=== PATIENT | female | born 1945 | race Caucasian/White ===

== ENCOUNTER → 2016-11-04 | Outpatient (CLI) | payer MEDICARE ==
[~2016-11-04] MED LIST: ALBU0.08 NEB; ASPI1TAB69 PO; BENETAB PO; CLON1TAB PO; COQ1100C PO; CYCL1TAB29 PO; DICL50TA PO; GABA600T PO; MULTCAP13; OMEG1CAP33 PO; ROPI1TAB PO; ROSU40 PO
[2016-11-04 17:33] LABS: FREE T4 1.31 NG/DL (0.76-1.46); GLUCOSE,FASTING 73 MG/DL (74-99); TOTAL PROTEIN SPE 7.8 GM/DL (6.0-7.6)
[2016-11-04 17:58] LABS: HEMOGLOBIN A1a 0.9 %; HEMOGLOBIN A1b 1.9 %; HEMOGLOBIN Ao 84.7 %
[2016-11-05 20:32] LABS: ALBUMIN SPE 4.34 GM/DL (3.50-5.00); ALPHA 1 GLOBULIN 0.21 GM/DL (0.11-0.29); ALPHA 2 GLOBULIN 1.08 GM/DL (0.22-1.00); BETA GLOBULINS (SPE) 0.85 GM/DL (0.53-1.03)
== END ==
LOC: PLAB 11:44
PROVIDERS: ATTEND Specialist
DX: E11.65 Type 2 diabetes mellitus with hyperglycemia (principal); E78.4 Other hyperlipidemia; E78.5 Hyperlipidemia, unspecified; R70.0 Elevated erythrocyte sedimentation rate; E53.8 Deficiency of other specified B group vitamins; M31.6 Other giant cell arteritis
CPT/HCPCS: 36415; 82607; 82947; 83036; 84165; 84439; 84443; 85652

== ENCOUNTER → 2016-12-09 | Outpatient (CLI) | payer MEDICARE ==
[2016-12-09 15:10] LABS: POTASSIUM 4.8 MEQ/L (3.5-5.1)
[2016-12-09 15:12] LABS: BICARBONATE 31.5 MEQ/L (21.0-32.0)
== END ==
LOC: PLAB 13:55
PROVIDERS: ATTEND Podiatrist Foot & Ankle Surgery
DX: Z13.228 Encounter for screening for other metabolic disorders (principal)
CPT/HCPCS: 36415; 80048

== ENCOUNTER → 2017-02-16 | Outpatient (CLI) | payer MEDICARE ==
[2017-02-16 14:10] LABS: ALKALINE PHOSPHATASE 114 U/L (45-117); ALT (GPT) 30 U/L (10-53); ANION GAP 6 MEQ/L (5-15); AST (GOT) 20 U/L (15-37); BICARBONATE 29.2 MEQ/L (21.0-32.0); BLOOD UREA NITROGEN 16 MG/DL (7-18); CHLORIDE 105 MEQ/L (98-107); FREE T4 1.21 NG/DL (0.76-1.46); GLOMERULAR FILTRATION RATE 70 ML/MIN (>89); GLUCOSE,FASTING 92 MG/DL (74-99); LDL CHOLESTEROL 50 MG/DL (0-99); POTASSIUM 3.9 MEQ/L (3.5-5.1); SODIUM (NA) 140 MEQ/L (136-145); TOTAL BILIRUBIN ADULT 0.2 MG/DL (0.2-1.0)
[2017-02-16 16:50] LABS: HEMOGLOBIN A1a 0.9 %; HEMOGLOBIN A1b 1.9 %; HEMOGLOBIN Ao 84.7 %; HEMOGLOBIN P3 3.9 %
== END ==
LOC: PLAB 10:24
PROVIDERS: ATTEND Family Medicine
DX: R94.6 Abnormal results of thyroid function studies (principal); R94.5 Abnormal results of liver function studies; E78.5 Hyperlipidemia, unspecified; R73.01 Impaired fasting glucose
CPT/HCPCS: 36415; 80053; 80061; 80074; 83036; 84439; 84443

== ENCOUNTER → 2017-06-15 | Outpatient (CLI) | payer MEDICARE ==
[~2017-06-15] MED LIST changes: -ASPI1TAB69 PO; +ASPI81TA81; +BACL10TA PO; -BENETAB PO; +CO Q10CA; -COQ1100C PO; -DICL50TA PO; +DICL50TA3; +HYDR-3133 PO; -MULTCAP13; +MULTTAB12; -OMEG1CAP33 PO; +OMEP20TA PO; +PERC10TA27 PO
--- NOTE | 2017-06-15 16:51 | EKG ---
Date Performed: 06/15/2017 Time Performed: 11:41:50 PTAGE: 72 years EKG: Sinus rhythm POSSIBLE LEFT ATRIAL ENLARGEMENT LOW QRS VOLTAGE IN EXTREMITY LEADS BORDERLINE ECG PREVIOUS TRACING : 05/23/2016 13.54 Compared to prior tracing no significant change DOCTOR: Brody Shen Interpretating Date/Time 06/15/2017 16:48:19
== END ==
LOC: PHPRE 11:20
PROVIDERS: ATTEND Ophthalmology
DX: Z01.810 Encounter for preprocedural cardiovascular examination (principal); I10 Essential (primary) hypertension; H26.9 Unspecified cataract
CPT/HCPCS: 36415; 93005

== ENCOUNTER → 2017-06-29 | Day surgery (SDC) | payer MEDICARE ==
--- NOTE | 2017-06-16 13:15 | MH ---
cc: DAPHNE SILVA DATE OF ADMISSION 06/29/2017 ADMISSION DIAGNOSIS Cataract right eye. HISTORY OF PRESENT ILLNESS This 72-year-old white female is coming through [facility] for the purpose of a lens extraction of the right eye with intraocular lens implant under local anesthesia. She has noticed decreasing visual acuity interfering with her daily activities and elected to have the above procedure. Her best corrected visual acuity in room light is 20/40 each eye. PAST MEDICAL HISTORY The patient has a history of: 1. Hypertension 2. Neuropathy 3. Cholesterol problems 4. Chronic obstructive pulmonary disease 5. Gastroesophageal reflux disease 6. She has had renal failure. 7. GI bleed with sepsis 8. Increased red blood cells 9. History of spinal injury. PAST SURGICAL HISTORY Includes: 1. Thoracic spine surgery three times 2. Lumbar spine surgery 3. Appendectomy 4. Total abdominal hysterectomy 5. Endoscopy MEDICATIONS Daily medications include: 1. Clonazepam 2. Ropinirole 3. Diclofenac 4. Oxycodone p.r.n. 5. Co-Q10 6. Baby aspirin 7. Multivitamins 8. Gabapentin 9. Hydroxyzine 10. Flexeril 11. Benefiber 12. Lovastatin 13. Ipratropium A Albuterol nebulizer. ALLERGIES She has no known allergies. SOCIAL HISTORY She was a one-pack per day smoker for 50 years in the past and has an alcoholic beverage once a month. FAMILY HISTORY Positive for father, brother and grandmother with cataracts and a grandmother and brother with glaucoma. REVIEW OF SYSTEMS HEAD: Patient denies severe headaches, dizziness or recent head injury. EARS: Patient denies hearing loss, ear pain, discharge or ringing in the ears. NOSE: Patient denies nasal discharge, obstruction or frequent colds. MOUTH AND THROAT: Patient denies soreness of the mouth or tongue, bleeding gums, trouble swallowing, changes in voice or sore throat. NECK: She does have some limitation of her neck from severe arthritis with some neck discomfort. CARDIOPULMONARY SYSTEM: Due to the patient's COPD she has some shortness of breath, chronic cough, sputum production and wheezing. GI SYSTEM: She also has some nausea and vomiting secondary to her gastroesophageal reflux disease. She occasionally gets abdominal discomfort with constipation and hemorrhoids. SYSTEM: The patient denies urinary frequency, dysuria, change in urine color. NERVOUS SYSTEM: She has peripheral neuropathy in her extremities. Patient denies convulsions, vertigo, stroke. PHYSICAL EXAM VITAL SIGNS: Blood pressure is 132/78, pulse 76, respirations 20. HEAD: Normocephalic, atraumatic. NOSE: Without rhinorrhea. THROAT: Clear. NECK: Supple. CHEST: Clear. HEART: Regular rhythm. ABDOMEN: Without tenderness. EXTREMITIES: Without edema. NEUROLOGIC: Within normal limits. MENTAL STATUS: Within normal limits. EYE EXAMINATION The patient's best corrected visual acuity in room light is 20/40 in each eye. Visual resendez are full to confrontation testing. Extraocular muscle exam reveals full versions with orthophoria in the distance and exophoria at near. Pupils are 3.5 mm equal, and minimally reactive to light without afferent defect. Anterior segment examination reveals dermatochalasis of the eyelid skin. There are nuclear sclerotic and cortical cataract changes with the cortical changes being central and greater in the left than the right. Intraocular pressure is 18 in the right eye and 16 in the left by applanation tonometry. Dilated fundus exam revealed sharp disks with cup-to-disk ratio 0.4 bilaterally. A mild epiretinal membrane was present in the macula of the right eye. The macula of the left eye was clear. The background is within normal limits. A potential acuity meter test shows potential acuity of 20/25 +1 in the right eye and 20/20 in the left. IMPRESSION 1. Bilateral cataracts 2. Epiretinal membrane right eye. PLAN The plan is lens extraction of the right eye with intraocular lens implant under local anesthesia through [facility]. The patient has been cleared medically. She has been counseled as to the risks, benefits and alternatives and elected to proceed. I feel that cataract surgery will improve the quality of life and activities of daily living in this patient. MD DALE Joyce/CARTER /12:48 PM /2:26 PM JOSE ELIAS
[~2017-06-29] VITALS: Ht 154.9 cm; Wt 59.0 kg
[~2017-06-29] MED LIST changes: +ACETAMINOPHEN 500 MG CPLT ONE; +ACETYLCHOLINE CHL OPHT SOLN 1:100 2 ML VIAL ONE; +CHLORHEXIDINE GLUCONATE 2 % 1 PACK (2 CLOTHS) TOPICAL PRN; +CYCLOPENTOLATE HCL 1% OPHT SOLN 2 ML BTL ONE; +DICLOFENAC SOD 0.1% OPHT SOLN 2.5 ML BTL ONE; +EPINEPHrine HCL (1:1000) 1 MG/ML VIAL ONE; +GATIFLOXACIN 0.5% OPHT SOLN 2.5 ML BTL ONE; +HYALURONIDASE/LIDOCAINE/BUPIVACAINE 4.5 ML SYR RIGHT EYE ONE; +HYALURONIDASE/LIDOCAINE/BUPIVACAINE 6 ML SYR RIGHT EYE ONE; +INSULIN HUMAN REGULAR 1,000 UNITS/10 ML VIAL SQ PRN; +LACTATED RINGER'S 1000 ML IV PRN; +METOPROLOL TARTRATE 25 MG TAB PO PRN; +PHENYLEPHRINE HCL 2.5% OPTH SOLN 2 ML BTL ONE; +PILOCARPINE HCL 2% OPHT SOLN 15 ML BTL ONE; +POVIDONE IODINE 5% (ANTISEPSIS KIT) 4 APPLICATIONS EACH NARE PRN; +PROPARACAINE HCL 0.5% OPHT SOLN 15 ML BTL ONE; +PROPARACAINE HCL 0.5% OPHT SOLN 15 ML BTL RIGHT EYE ONE; +PROPOFOL 200 MG/20 ML AMP ONE; +SODIUM CHLORID 0.9% 500 ML INJ 500 ML IV ONE; +SODIUM CHLORID 0.9% 500 ML IV PRN; +TOBRAMYCIN/DEXAMETHASONE OPTH OINT 3.5 GM TUBE ONE; +TROPICAMIDE 1% OPHT SOLN 15 ML BTL ONE; +VISCOAT OPHT IRRIG SOLN 0.75 ML SYRINGE ONE
[2017-06-29 06:40] VITALS: PULSE 86
[2017-06-29] MEDS: GATIFLOXACIN 0.5% OPHT SOLN 2.5 ML BTL RIGHT EYE SCH ×4 (06:40→06:49)
[2017-06-29] MEDS: PHENYLEPHRINE HCL 2.5% OPTH SOLN 2 ML BTL RIGHT EYE SCH ×4 (06:40→06:49)
[2017-06-29] MEDS: TROPICAMIDE 1% OPHT SOLN 15 ML BTL RIGHT EYE SCH ×4 (06:40→06:49)
[2017-06-29] MEDS: CYCLOPENTOLATE HCL 1% OPHT SOLN 2 ML BTL RIGHT EYE SCH ×4 (06:40→06:49)
[2017-06-29] MEDS: DICLOFENAC SOD 0.1% OPHT SOLN 2.5 ML BTL RIGHT EYE SCH ×4 (06:40→06:49)
[2017-06-29 08:30] VITALS: TEMP 97.5
[2017-06-29 09:00] VITALS: BP 137/79; PULSE 80; RESP 14; O2SAT 97
--- NOTE | 2017-06-30 13:14 | MP ---
cc: DAPHNE ZACARIAS DATE OF SURGERY: June 29, 2017 PREOPERATIVE DIAGNOSIS: Cataract right eye. POSTOPERATIVE DIAGNOSIS: Cataract right eye. OPERATION: Extracapsular cataract extraction with posterior chamber intraocular lens implant by phacoemulsification, right eye. SURGEON: Daphne Zacarias M.D. ANESTHESIA: Local. COMPLICATIONS: None. INDICATIONS: See history and physical previously dictated. OPERATIVE PROCEDURE: The patient had adequate retrobulbar and eyelid blocks administered in the holding area and was brought to the operating room. The right eye was prepped and draped in the usual sterile ophthalmic manner. A lid speculum was inserted in the right eye. A 4-0 silk bridle suture was placed through the conjunctiva near the superior rectus muscle and it was tagged to the drape. A fornix-based conjunctival flap was prepared spanning approximately 5 mm in width. Hemostasis was obtained with wet-field cautery. A 3.5 mm groove was made 1 mm from the limbus and dissected up to the limbus in the form of a scleral pocket incision. A stab incision was then made at the 2 o'clock position. Viscoelastic was injected into the anterior chamber. The anterior chamber was entered with a 2.75 mm keratome through the scleral pocket incision. A 360 degree continuous curvilinear capsulorrhexis was then performed. Hydrodissection was utilized to divide the nucleus into inner and outer components and to separate the cortex from the capsule. Phacoemulsification was then utilized to remove the nucleus. The outer nuclear layer was removed with irrigation and aspiration and short bursts of ultrasound as necessary. The cortex was removed with the irrigation/aspiration handpiece. The posterior capsule was polished with the capsule polisher. Viscoelastic was injected into the capsular bag. The intraocular lens was inspected and found to be in good condition. The lens utilized was an Hua, model number SA60AT with a power of +22 diopters. The lens was inserted into the capsular bag. The viscoelastic in the anterior chamber was then removed with the irrigation-aspiration handpiece. Viscoelastic was also removed from beneath the intraocular lens. The anterior chamber was filled with Miochol-E through the stab incision and pressurized. The wound was checked for leaks at this pressure and normalized pressure and there were none. The 4-0 bridle suture was removed. The conjunctival flap was brought down over the wound and secured with cautery. Pilocarpine 2% eye drops were instilled topically. The lid speculum was removed. TobraDex ophthalmic ointment was applied. The eye was double patched and shielded. The patient tolerated the procedure well and left the Operating Room in satisfactory condition. DaphneMD DALE Harmon/OLAF /8:39 AM /1:05 PM
== END | disposition home or self-care (01) ==
LOC: PHSDC 06:13
PROVIDERS: ATTEND Ophthalmology
DX: H25.811 Combined forms of age-related cataract, right eye (principal); I10 Essential (primary) hypertension; G62.9 Polyneuropathy, unspecified; J44.9 Chronic obstructive pulmonary disease, unspecified; K21.9 Gastro-esophageal reflux disease without esophagitis
CPT/HCPCS: 00142; 66984; J0171; J7040; V2632

== ENCOUNTER → 2017-08-03 | Outpatient (CLI) | payer MEDICARE ==
[~2017-08-03] MED LIST changes: -ACETAMINOPHEN 500 MG CPLT ONE; -ACETYLCHOLINE CHL OPHT SOLN 1:100 2 ML VIAL ONE; -CHLORHEXIDINE GLUCONATE 2 % 1 PACK (2 CLOTHS) TOPICAL PRN; -CYCLOPENTOLATE HCL 1% OPHT SOLN 2 ML BTL ONE; -DICLOFENAC SOD 0.1% OPHT SOLN 2.5 ML BTL ONE; -EPINEPHrine HCL (1:1000) 1 MG/ML VIAL ONE; -GATIFLOXACIN 0.5% OPHT SOLN 2.5 ML BTL ONE; -HYALURONIDASE/LIDOCAINE/BUPIVACAINE 4.5 ML SYR RIGHT EYE ONE; -HYALURONIDASE/LIDOCAINE/BUPIVACAINE 6 ML SYR RIGHT EYE ONE; -INSULIN HUMAN REGULAR 1,000 UNITS/10 ML VIAL SQ PRN; -LACTATED RINGER'S 1000 ML IV PRN; -METOPROLOL TARTRATE 25 MG TAB PO PRN; -PHENYLEPHRINE HCL 2.5% OPTH SOLN 2 ML BTL ONE; -PILOCARPINE HCL 2% OPHT SOLN 15 ML BTL ONE; -POVIDONE IODINE 5% (ANTISEPSIS KIT) 4 APPLICATIONS EACH NARE PRN; -PROPARACAINE HCL 0.5% OPHT SOLN 15 ML BTL ONE; -PROPARACAINE HCL 0.5% OPHT SOLN 15 ML BTL RIGHT EYE ONE; -PROPOFOL 200 MG/20 ML AMP ONE; -SODIUM CHLORID 0.9% 500 ML INJ 500 ML IV ONE; -SODIUM CHLORID 0.9% 500 ML IV PRN; -TOBRAMYCIN/DEXAMETHASONE OPTH OINT 3.5 GM TUBE ONE; -TROPICAMIDE 1% OPHT SOLN 15 ML BTL ONE; -VISCOAT OPHT IRRIG SOLN 0.75 ML SYRINGE ONE
[2017-08-03 11:29] LABS: AUTOMATED NEUTROPHIL # 15.6 TH/MM3 (1.8-7.7); BASOPHIL # 0.1 TH/MM3 (0-0.2); BASOPHIL % 0.6 % (0.0-2.0); EOSINOPHIL # 0.2 TH/MM3 (0-0.4); EOSINOPHIL % 0.9 % (0.0-4.0); HEMO FLAGS DIFF FINAL; LYMPH % 18.3 % (9.0-44.0); LYMPHOCYTE # 3.8 TH/MM3 (1.0-4.8); MEAN CELL VOLUME 87.9 FL (80.0-100.0); MEAN CORPUSCULAR HEMOGLOBIN 28.9 PG (27.0-34.0); MEAN CORPUSCULAR HGB CONC 32.8 % (32.0-36.0); MONO % 4.5 % (0.0-8.0); NEUT % 75.7 % (16.0-70.0); PLATELET COUNT 278 TH/MM3 (150-450); RED BLOOD COUNT 5.11 MIL/MM3 (4.00-5.30); RED CELL DISTRIBUTION WIDTH 14.3 % (11.6-17.2); WHITE BLOOD COUNT 20.6 TH/MM3 (4.0-11.0)
== END ==
LOC: PHPRE 10:50
PROVIDERS: ATTEND Ophthalmology
DX: Z01.812 Encounter for preprocedural laboratory examination (principal)
CPT/HCPCS: 36415; 85025

== ENCOUNTER → 2017-08-10 | Outpatient (CLI) | payer MEDICARE ==
[2017-08-10 13:11] LABS: AUTOMATED NEUTROPHIL # 13.3 TH/MM3 (1.8-7.7); BASOPHIL # 0.1 TH/MM3 (0-0.2); BASOPHIL % 0.4 % (0.0-2.0); EOSINOPHIL # 0.1 TH/MM3 (0-0.4); EOSINOPHIL % 0.5 % (0.0-4.0); HEMATOCRIT 47.2 % (35.0-46.0); HEMO FLAGS DIFF FINAL; LYMPH % 20.1 % (9.0-44.0); LYMPHOCYTE # 3.6 TH/MM3 (1.0-4.8); MEAN CELL VOLUME 91.5 FL (80.0-100.0); MEAN CORPUSCULAR HEMOGLOBIN 29.9 PG (27.0-34.0); MEAN CORPUSCULAR HGB CONC 32.7 % (32.0-36.0); MONO % 4.6 % (0.0-8.0); NEUT % 74.4 % (16.0-70.0); PLATELET COUNT 276 TH/MM3 (150-450); RED BLOOD COUNT 5.16 MIL/MM3 (4.00-5.30); RED CELL DISTRIBUTION WIDTH 14.9 % (11.6-17.2); WHITE BLOOD COUNT 17.9 TH/MM3 (4.0-11.0)
[2017-08-10 13:41] LABS: ALKALINE PHOSPHATASE 95 U/L (45-117); ALT (GPT) 50 U/L (10-53); HDL CHOLESTEROL 57.9 MG/DL (40.0-60.0); LDL CHOLESTEROL 62 MG/DL (0-99); TOTAL BILIRUBIN ADULT 0.6 MG/DL (0.2-1.0)
[2017-08-10 14:10] LABS: HEMOGLOBIN A1a 1.1 %; HEMOGLOBIN Ao 84.1 %; HEMOGLOBIN LA1C 2.1 %
[2017-08-10 14:17] LABS: ANION GAP 8 MEQ/L (5-15); AST (GOT) 17 U/L (15-37); BICARBONATE 31.3 MEQ/L (21.0-32.0); BLOOD UREA NITROGEN 16 MG/DL (7-18); CHLORIDE 101 MEQ/L (98-107); GLOMERULAR FILTRATION RATE 63 ML/MIN (>89); GLUCOSE,FASTING 96 MG/DL (74-99); POTASSIUM 4.2 MEQ/L (3.5-5.1); SODIUM (NA) 140 MEQ/L (136-145)
== END ==
LOC: PLAB 10:42
PROVIDERS: ATTEND Family Medicine
DX: E78.5 Hyperlipidemia, unspecified (principal); R73.01 Impaired fasting glucose; R94.6 Abnormal results of thyroid function studies
CPT/HCPCS: 36415; 80053; 80061; 83036; 84443; 85025

== ENCOUNTER → 2017-08-10 | Day surgery (SDC) | payer MEDICARE ==
--- NOTE | 2017-08-03 15:13 | MH ---
cc: DAPHNE SILVA M.D. [facility], DATE OF ADMISSION: 08/10/2017 ADMISSION DIAGNOSIS Cataract, left eye. HISTORY OF PRESENT ILLNESS This 72-year-old white female is coming through [facility] for the purpose of a lens extraction of the left eye with intraocular lens implant under local anesthesia. She has a history of decreased visual acuity interfering with her daily activities and elected to have the above procedure. She had cataract surgery in her right eye in June of this year and did well postoperatively and now requested the cataract be done on her left eye. Her best-corrected visual acuity is 20/25 +2 in the right eye and 20/40 in the left eye in room light. PAST MEDICAL HISTORY 1. Hypertension. 2. Neuropathy. 3. Cholesterol problems. 4. COPD. 5. Gastroesophageal reflux disease. 6. Spinal injury. 7. GI bleed. 8. Sepsis. 9. Renal failure. 10. Increased red blood cells. PAST SURGICAL HISTORY 1. Thoracic spine surgery three times. 2. Lumbar surgery. 3. Appendectomy. 4. Total abdominal hysterectomy. 5. Endoscopy. 6. Cataract surgery as above. MEDICATIONS Daily medications include: 1. Clonazepam. 2. Ropinirole. 3. Diclofenac. 4. Oxycodone. 5. CoQ10. 6. Multivitamins. 7. Gabapentin. 8. Flexeril. 9. Benefiber. 10. Lovastatin. 11. Nebulizer. 12. Omeprazole. 13. Two ELIJAH medicines. ALLERGIES The patient has no known allergies. SOCIAL HISTORY She smoked one pack of cigarettes a day for 50 years in the past; does not smoke now. She drinks alcohol once a month. FAMILY HISTORY Positive for father, brother and grandmother with cataracts, grandmother and brother with glaucoma. REVIEW OF SYSTEMS HEAD: Patient denies severe headaches, dizziness or recent head injury. EARS: Patient denies hearing loss, ear pain, discharge or ringing in the ears. NOSE: Patient denies nasal discharge, obstruction or frequent colds. MOUTH AND THROAT: Patient denies soreness of the mouth or tongue, bleeding gums, trouble swallowing, changes in voice or sore throat. NECK: Patient denies neck pain or swelling, limitation of neck movement or neck injury. CARDIOPULMONARY SYSTEM: The patient has COPD with shortness of breath, chronic cough and wheezing. Patient denies hemoptysis, chest pain, palpitations or light-headedness. GI SYSTEM: The patient has some gastroesophageal reflux disease causing some nausea and vomiting at times and abdominal discomfort. She also has hemorrhoids. Patient denies poor appetite, ulcers, or change in bowel habits. SYSTEM: The patient denies urinary frequency, dysuria, change in urine color. NERVOUS SYSTEM: The patient has peripheral neuropathy. Patient denies convulsions, vertigo, stroke, numbness or weakness. MUSCULOSKELETAL: The patient has severe arthritis and limited range of motion. PHYSICAL EXAMINATION VITAL SIGNS: Blood pressure 110/78, pulse 80, respirations 16. HEAD: Normocephalic, atraumatic. NOSE: Without rhinorrhea. THROAT: Clear. NECK: Supple. CHEST: Clear. HEART: Regular rhythm. ABDOMEN: Without tenderness. EXTREMITIES: Without edema. NEUROLOGIC: Within normal limits. MENTAL STATUS: Within normal limits. EYE EXAM: The patient's best-corrected visual acuity is 20/25 +2 in the right eye and 20/40 in the left eye in room light. Visual resendez are full to confrontation testing. Extraocular muscle exam reveals full versions with orthophoria in the distance and exophoria at near. Pupils are 3.5 mm, equal, round, reactive to light without afferent defect. Anterior segment examination reveals a posterior chamber intraocular lens in place in the right eye and nuclear sclerotic and cortical cataract in the left eye. Intraocular pressure is 15 in the right eye and 17 in the left by applanation tonometry. Dilated fundus exam revealed sharp disks with cup-to-disk ratio of 0.4 bilaterally. An epiretinal membrane that is mild is noted in the macula of the right eye. The macula of the left eye is within normal limits. Background is within normal limits. IMPRESSION 1. Cataract, left eye. 2. Pseudophakia, right eye. 3. Mild epiretinal membrane in the macula of the right eye. PLAN Lens extraction of the left eye with intraocular lens implant under local anesthesia through [facility]. The patient has been cleared medically. She has been counseled as to the risks, benefits and alternatives and elected to proceed. I feel that cataract surgery will improve the quality of life and activities of daily living in this patient. MD DALE Joyce/ZOE /2:36 PM /2:57 PM
[~2017-08-10] VITALS: Ht 154.9 cm; Wt 60.5 kg
[~2017-08-10] MED LIST changes: +ACETYLCHOLINE CHL OPHT SOLN 1:100 2 ML VIAL ONE; +CHLORHEXIDINE GLUCONATE 2 % 1 PACK (2 CLOTHS) TOPICAL PRN; +CYCLOPENTOLATE HCL 1% OPHT SOLN 2 ML BTL ONE; +DICLOFENAC SOD 0.1% OPHT SOLN 2.5 ML BTL ONE; +EPINEPHrine HCL (1:1000) 1 MG/ML VIAL ONE; +GATIFLOXACIN 0.5% OPHT SOLN 2.5 ML BTL ONE; +HYALURONIDASE/LIDOCAINE/BUPIVACAINE 4.5 ML SYR ONE; +HYALURONIDASE/LIDOCAINE/BUPIVACAINE 6 ML SYR ONE; +INSULIN HUMAN REGULAR 1,000 UNITS/10 ML VIAL SQ PRN; +LACTATED RINGER'S 1000 ML IV PRN; +METOPROLOL TARTRATE 25 MG TAB PO PRN; +PHENYLEPHRINE HCL 2.5% OPTH SOLN 2 ML BTL ONE; +PILOCARPINE HCL 2% OPHT SOLN 15 ML BTL ONE; +POVIDONE IODINE 5% (ANTISEPSIS KIT) 4 APPLICATIONS EACH NARE PRN; +PROPARACAINE HCL 0.5% OPHT SOLN 15 ML BTL ONE; +PROPOFOL 200 MG/20 ML AMP ONE; +SODIUM CHLORID 0.9% 500 ML IV PRN; +TOBRAMYCIN/DEXAMETHASONE OPTH OINT 3.5 GM TUBE ONE; +TROPICAMIDE 1% OPHT SOLN 15 ML BTL ONE; +VISCOAT OPHT IRRIG SOLN 0.75 ML SYRINGE ONE
[2017-08-10 07:42] VITALS: PULSE 89
[2017-08-10 08:32] VITALS: PULSE 77
[2017-08-10 09:57] VITALS: TEMP 98.2
[2017-08-10 10:20] VITALS: BP 158/87; PULSE 81; RESP 16; O2SAT 98
--- NOTE | 2017-08-10 10:36 | MP ---
cc: DAPHNE ZACARIAS DATE OF SURGERY: August 10, 2017 PREOPERATIVE DIAGNOSIS: Cataract left eye. POSTOPERATIVE DIAGNOSIS: Cataract left eye. OPERATION: Extracapsular cataract extraction with posterior chamber intraocular lens implant by phacoemulsification, left eye. SURGEON: Daphne Zacarias M.D. ANESTHESIA: Local. COMPLICATIONS: None. INDICATIONS: See history and physical previously dictated. OPERATIVE PROCEDURE: The patient had adequate retrobulbar and eyelid blocks administered in the holding area and was brought to the operating room. The left eye was prepped and draped in the usual sterile ophthalmic manner. A lid speculum was inserted in the left eye. A 4-0 silk bridle suture was placed through the conjunctiva near the superior rectus muscle and it was tagged to the drape. A fornix-based conjunctival flap was prepared spanning approximately 5 mm in width. Hemostasis was obtained with wet-field cautery. A 3.5 mm groove was made 1 mm from the limbus and dissected up to the limbus in the form of a scleral pocket incision. A stab incision was then made at the 2 o'clock position. Viscoelastic was injected into the anterior chamber. The anterior chamber was entered with a 2.75 mm keratome through the scleral pocket incision. A 360 degree continuous curvilinear capsulorrhexis was then performed. Hydrodissection was utilized to divide the nucleus into inner and outer components and to separate the cortex from the capsule. Phacoemulsification was then utilized to remove the nucleus. The outer nuclear layer was removed with irrigation and aspiration and short bursts of ultrasound as necessary. The cortex was removed with the irrigation/aspiration handpiece. The posterior capsule was polished with the capsule polisher. Viscoelastic was injected into the capsular bag. The intraocular lens was inspected and found to be in good condition. The lens utilized was an Hua, model number SA60AT with a power of +22 diopters. The lens was inserted into the capsular bag. The viscoelastic in the anterior chamber was then removed with the irrigation-aspiration handpiece. Viscoelastic was also removed from beneath the intraocular lens. The anterior chamber was filled with Miochol-E through the stab incision and pressurized. The wound was checked for leaks at this pressure and normalized pressure and there were none. The 4-0 bridle suture was removed. The conjunctival flap was brought down over the wound and secured with cautery. Pilocarpine 2% eye drops were instilled topically. The lid speculum was removed. TobraDex ophthalmic ointment was applied. The eye was double patched and shielded. The patient tolerated the procedure well and left the Operating Room in satisfactory condition. DaphneMD DALE Harmon/OLAF /10:05 AM /10:31 AM
== END | disposition home or self-care (01) ==
LOC: PHSDC 07:00
PROVIDERS: ATTEND Ophthalmology
DX: H26.9 Unspecified cataract (principal); I12.9 Hypertensive chronic kidney disease with stage 1 through stage 4 chronic kidney disease, or unspecified chronic kidney disease; N18.9 Chronic kidney disease, unspecified; E78.5 Hyperlipidemia, unspecified; G62.9 Polyneuropathy, unspecified; J44.9 Chronic obstructive pulmonary disease, unspecified; K21.9 Gastro-esophageal reflux disease without esophagitis; Z96.1 Presence of intraocular lens; Z87.891 Personal history of nicotine dependence; Z79.891 Long term (current) use of opiate analgesic; Z79.51 Long term (current) use of inhaled steroids; Z79.899 Other long term (current) drug therapy
CPT/HCPCS: 00142; 36415; 66984; 80053; 80061; 83036; 84443; 85025; J0171; J7040; V2632

== ENCOUNTER 2017-12-30 10:53 | Emergency (ER) | payer MEDICARE ==
[~2017-12-30] VITALS: Ht 152.4 cm; Wt 57.5 kg
[~2017-12-30 10:53] MED LIST changes: -ACETYLCHOLINE CHL OPHT SOLN 1:100 2 ML VIAL ONE; -ASPI81TA81; +ASPI81TA81 PO; -CHLORHEXIDINE GLUCONATE 2 % 1 PACK (2 CLOTHS) TOPICAL PRN; -CYCL1TAB29 PO; -CYCLOPENTOLATE HCL 1% OPHT SOLN 2 ML BTL ONE; -DICL50TA3; +DICL50TA3 PO; -DICLOFENAC SOD 0.1% OPHT SOLN 2.5 ML BTL ONE; -EPINEPHrine HCL (1:1000) 1 MG/ML VIAL ONE; +FENT25DI T-DERMAL; -GATIFLOXACIN 0.5% OPHT SOLN 2.5 ML BTL ONE; -HYALURONIDASE/LIDOCAINE/BUPIVACAINE 4.5 ML SYR ONE; -HYALURONIDASE/LIDOCAINE/BUPIVACAINE 6 ML SYR ONE; -INSULIN HUMAN REGULAR 1,000 UNITS/10 ML VIAL SQ PRN; +IPRASOL NEB; -LACTATED RINGER'S 1000 ML IV PRN; -METOPROLOL TARTRATE 25 MG TAB PO PRN; -MULTTAB12; +MULTTAB12 PO; -OMEP20TA PO; -PHENYLEPHRINE HCL 2.5% OPTH SOLN 2 ML BTL ONE; -PILOCARPINE HCL 2% OPHT SOLN 15 ML BTL ONE; -POVIDONE IODINE 5% (ANTISEPSIS KIT) 4 APPLICATIONS EACH NARE PRN; -PROPARACAINE HCL 0.5% OPHT SOLN 15 ML BTL ONE; -PROPOFOL 200 MG/20 ML AMP ONE; +ROSU1TAB10 PO; -SODIUM CHLORID 0.9% 500 ML IV PRN; -TOBRAMYCIN/DEXAMETHASONE OPTH OINT 3.5 GM TUBE ONE; -TROPICAMIDE 1% OPHT SOLN 15 ML BTL ONE; -VISCOAT OPHT IRRIG SOLN 0.75 ML SYRINGE ONE; +ZANT150T2 PO
[2017-12-30 10:55] VITALS: BP 153/80; PULSE 99; RESP 18; TEMP 98.2
[2017-12-30 11:33] VITALS: O2SAT 87; O2SAT 97
[2017-12-30] MEDS ORDERED: SODIUM CHLOR 0.9% 1000 ML INJ 1,000 ML IV SCH (11:33)
--- NOTE | 2017-12-30 11:39 | PD ---
HPI Chief Complaint: General Weakness Time Seen by Provider: 11:07 Travel History International Travel<30 days: No Contact w/Intl Traveler<30days: No Traveled to known affect area: No History of Present Illness HPI This is a 72-year-old female who presents for evaluation of tremulousness, fatigue, difficulty concentrating. Symptoms started 5 days ago after she spent the weekend working in her yard doing yard work. She reports severe thirst as well. Symptoms have persisted which prompted evaluation today. She denies fevers, chills, headache, blurred vision, neck pain, chest pain, shortness of breath, nausea, vomiting, diarrhea, constipation, dysuria, rash. Her primary care physician is Dr. Syed. She is on numerous sedating medications including fentanyl, baclofen, gabapentin, Klonopin, Percocet, but she denies any increase in her medication this week. She has no other complaints at this time. PFSH Past Medical History Arthritis: Yes (BACK AND NECK) Cancer: Yes (SKIN) Cardiovascular Problems: No High Cholesterol: Yes COPD: Yes Diabetes: No Diminished Hearing: No Endocrine: No Gastrointestinal Disorders: Yes (GERD) GERD: Yes Genitourinary: Yes (INCONTINENT) Hepatitis: No Hiatal Hernia: No Hypertension: Yes Immune Disorder: No Musculoskeletal: Yes (BACK, SPINE,NECK LEG PAIN; HERNIATED DISC) Neurologic: Yes (PERIPHERAL NEUROPATHY; MEMORY LOSS) Psychiatric: Yes (CLAUSTROPHIA; FEAR OF HEIGHTS) Reproductive: No Respiratory: Yes (PNEUMONIA; COPD) Immunizations Current: Yes Thyroid Disease: No Menopausal: Yes Past Surgical History Abdominal Surgery: Yes (LAP APPY) AICD: No Appendectomy: Yes Body Medical Devices: THORACIC TITANIUM Cardiac Surgery: No Ear Surgery: No Endocrine Surgery: No Eye Surgery: Yes (RIGHT CATARACT) Genitourinary Surgery: No Gynecologic Surgery: Yes (TOTAL ABD HYST; ) Hysterectomy: Yes (ISABELL) Joint Replacement: No Neurologic Surgery: Yes (THORACIC SPINE SURGERY X 3) Oral Surgery: No Pacemaker: No Thoracic Surgery: Yes (THORACIC APPROACH TO BACK SURGERY) Other Surgery: Yes (ISABELL, tHOR SPINE X2 '01,THOR SPINE & THOACOT 05) Social History Alcohol Use: Yes (WINE RARELY) Tobacco Use: No (QUIT SMOKING ) Substance Use: No Allergies-Medications (Allergen,Severity, Reaction): Coded Allergies: No Known Allergies (Verified Allergy, Unknown, 2/28/18) Reported Meds & Prescriptions Reported Meds & Active Scripts Active Macrobid (Nitrofurantoin Monohydrate Macrocrystals) 100 Mg Capsule 100 Mg PO BID 7 Days Crestor (Rosuvastatin Calcium) 40 Mg Tab 40 Mg PO DAILY Reported Duoneb (Ipratropium-Albuterol Neb) 0.5-2.5 Mg/3 Ml Neb 1 Nebule INH DAILY Fentanyl Patch 72 HR (Fentanyl) 25 Mcg/Hr Patch 25 Mcg T-DERMAL Q72H Baclofen 10 Mg Tab 10 Mg PO HS Gabapentin 600 Mg Tab 600 Mg PO TID Hydroxyzine HCl 25 Mg Tab 25 Mg PO PRN Clonazepam 1 Mg Tab 1 Mg PO HS Aspir-81 (Aspirin) 81 Mg Tabdr Multiple Vitamins (Multiple Vitamin) 1 Tab Tab Co Q 10 (Coenzyme Q10 (Ubidecarenone)) 10 Mg Cap Percocet (Oxycodone-Acetaminophen) 10-325 mg Tab 1 Tab PO Q6H PRN Diclofenac Sodium DR (Diclofenac Sodium) 50 Mg Tabdr Albuterol Neb (Albuterol Sulfate) 2.5 Mg/3 Ml Neb 2.5 Mg NEB BID Ropinirole 1 Mg Tab 1.5 Mg PO TID Review of Systems Except as stated in HPI: all other systems reviewed are Neg Physical Exam Narrative GENERAL: Well-developed well-nourished female in no acute distress SKIN: Warm and dry. HEAD: Atraumatic. Normocephalic. EYES: Pupils equal and round. No scleral icterus. No injection or drainage. ENT: No nasal bleeding or discharge. Mucous membranes pink and moist. NECK: Trachea midline. No JVD. CARDIOVASCULAR: Regular rate and rhythm. No murmur appreciated. RESPIRATORY: No accessory muscle use. Clear to auscultation. Breath sounds equal bilaterally. GASTROINTESTINAL: Abdomen soft, non-tender, nondistended. Hepatic and splenic margins not palpable. MUSCULOSKELETAL: No obvious deformities. No clubbing. No cyanosis. No edema. NEUROLOGICAL: Awake and alert. No obvious cranial nerve deficits. Motor grossly within normal limits. Normal speech. PSYCHIATRIC: Appropriate mood and affect; insight and judgment normal. Data Data Last Documented VS Vital Signs Date Time Temp Pulse Resp B/P (MAP) Pulse Ox O2 Delivery O2 Flow Rate FiO2 12/30/17 11:33 87 Room Air 12/30/17 11:33 3.00 12/30/17 10:55 98.2 99 18 153/80 (104) Orders Orders Complete Blood Count With Diff (12/30/17 11:33) Comprehensive Metabolic Panel (12/30/17 11:33) Urinalysis - C+S If Indicated (12/30/17 11:33) Iv Access Insert/Monitor (12/30/17 11:33) Sodium Chlor 0.9% 1000 Ml Inj (Ns 1000 M (12/30/17 11:33) Electrocardiogram (12/30/17 11:33) Creatine Kinase (Cpk) (12/30/17 11:33) Blood Glucose (12/30/17 11:33) Ct Brain W/O Iv Contrast(Rout) (12/30/17 ) CKMB (12/30/17 11:38) CKMB% (12/30/17 11:38) Urine Culture (12/30/17 12:52) Ceftriaxone Inj (Rocephin Inj) (12/30/17 13:45) Ed Discharge Order (12/30/17 13:33) Labs Laboratory Tests Test 12/30/17 11:38 12/30/17 12:52 White Blood Count 20.3 TH/MM3 Red Blood Count 4.88 MIL/MM3 Hemoglobin 14.1 GM/DL Hematocrit 42.7 % Mean Corpuscular Volume 87.5 FL Mean Corpuscular Hemoglobin 28.9 PG Mean Corpuscular Hemoglobin Concent 33.0 % Red Cell Distribution Width 15.8 % Platelet Count 208 TH/MM3 Mean Platelet Volume 9.6 FL Neutrophils (%) (Auto) 92.9 % Lymphocytes (%) (Auto) 3.3 % Monocytes (%) (Auto) 3.2 % Eosinophils (%) (Auto) 0.4 % Basophils (%) (Auto) 0.2 % Neutrophils # (Auto) 18.9 TH/MM3 Lymphocytes # (Auto) 0.7 TH/MM3 Monocytes # (Auto) 0.7 TH/MM3 Eosinophils # (Auto) 0.1 TH/MM3 Basophils # (Auto) 0.0 TH/MM3 CBC Comment DIFF FINAL Differential Comment Blood Urea Nitrogen 26 MG/DL Creatinine 1.02 MG/DL Random Glucose 118 MG/DL Total Protein 8.6 GM/DL Albumin 2.9 GM/DL Calcium Level 10.2 MG/DL Alkaline Phosphatase 152 U/L Aspartate Amino Transf (AST/SGOT) 59 U/L Alanine Aminotransferase (ALT/SGPT) 47 U/L Total Bilirubin 0.8 MG/DL Sodium Level 135 MEQ/L Potassium Level 4.0 MEQ/L Chloride Level 97 MEQ/L Carbon Dioxide Level 29.4 MEQ/L Anion Gap 9 MEQ/L Estimat Glomerular Filtration Rate 53 ML/MIN Total Creatine Kinase 524 U/L Creatine Kinase MB 4.9 NG/ML Creatine Kinase MB % 0.9 % Urine Color YELLOW Urine Turbidity CLOUDY Urine pH 5.5 Urine Specific Mio 1.015 Urine Protein 100 mg/dL Urine Glucose (UA) NEG mg/dL Urine Ketones 10 mg/dL Urine Occult Blood MOD Urine Nitrite NEG Urine Bilirubin NEG Urine Urobilinogen 2.0 MG/DL Urine Leukocyte Esterase MOD Urine RBC 3 /hpf Urine WBC 36 /hpf Urine Squamous Epithelial Cells 2 /hpf Urine Transitional Epithelial Cells <1 /hpf Urine Amorphous Sediment OCC Urine Bacteria MOD /hpf Urine Hyaline Casts 1 /lpf Urine Granular Casts 16 /lpf Urine Mucus FEW /lpf Microscopic Urinalysis Comment CULTURE INDICATED MDM Medical Decision Making Medical Screen Exam Complete: Yes Emergency Medical Condition: Yes Medical Record Reviewed: Yes Differential Diagnosis Dehydration, electrolyte abnormality, hypoglycemia, acute kidney injury Narrative Course The patient was placed on ECG monitoring pulse oximetry. A twelve-lead EKG was obtained Revealing sinus rhythm. Lab work, CT brain ordered. The patient was given IV fluids. CBC reveals WBC count of 20.3 which appears to be a chronic leukocytosis. Her CMP reveals a GFR 53, BUN 26, creatinine 1.02 which is slightly decreased from her baseline. Her total CK is elevated at 524. Calcium level was 10.2. CT brain reveals no acute abnormalities. History and examination are consistent with mild dehydration. The patient has been tolerating oral hydration during her hospital stay. Her urinalysis is consistent with UTI. She was given a dose of Rocephin. She will be discharged with Macrobid. She will be discharged with close follow-up with her primary care physician. Diagnosis Primary Impression: Dehydration Additional Impression: Urinary tract infection Additional Instructions: Medication as prescribed. Stay well hydrated well-nourished. Return for any acutely new or worsening symptoms. Med/Other Pt SpecificInfo: Prescription(s) given Scripts Nitrofurantoin Monohydrate Macrocrystals (Macrobid) 100 Mg Capsule 100 MG PO BID for Infection for 7 Days, #14 CAP 0 Refills Prov: Keyshawn Weeks MD 12/30/17 Disposition: 01 DISCHARGE HOME Condition: Stable Fausto Parikh Dec 30, 2017 11:39
[2017-12-30 11:56] LABS: AUTOMATED NEUTROPHIL # 18.9 TH/MM3 (1.8-7.7); BASOPHIL % 0.2 % (0.0-2.0); EOSINOPHIL # 0.1 TH/MM3 (0-0.4); EOSINOPHIL % 0.4 % (0.0-4.0); HEMATOCRIT 42.7 % (35.0-46.0); HEMOGLOBIN 14.1 GM/DL (11.6-15.3); LYMPH % 3.3 % (9.0-44.0); LYMPHOCYTE # 0.7 TH/MM3 (1.0-4.8); MEAN CELL VOLUME 87.5 FL (80.0-100.0); MEAN CORPUSCULAR HEMOGLOBIN 28.9 PG (27.0-34.0); MEAN PLATELET VOLUME 9.6 FL (7.0-11.0); MONO % 3.2 % (0.0-8.0); MONOCYTE # 0.7 TH/MM3 (0-0.9); NEUT % 92.9 % (16.0-70.0); PLATELET COUNT 208 TH/MM3 (150-450); RED BLOOD COUNT 4.88 MIL/MM3 (4.00-5.30); RED CELL DISTRIBUTION WIDTH 15.8 % (11.6-17.2); WHITE BLOOD COUNT 20.3 TH/MM3 (4.0-11.0)
[2017-12-30 12:19] LABS: ALBUMIN 2.9 GM/DL (3.4-5.0); ALKALINE PHOSPHATASE 152 U/L (45-117); ALT (GPT) 47 U/L (10-53); AST (GOT) 59 U/L (15-37); BICARBONATE 29.4 MEQ/L (21.0-32.0); BLOOD UREA NITROGEN 26 MG/DL (7-18); CALCIUM 10.2 MG/DL (8.5-10.1); CHLORIDE 97 MEQ/L (98-107); CREATININE 1.02 MG/DL (0.50-1.00); GLOMERULAR FILTRATION RATE 53 ML/MIN (>89); GLUCOSE,RANDOM 118 MG/DL (74-106); SODIUM (NA) 135 MEQ/L (136-145); TOTAL BILIRUBIN ADULT 0.8 MG/DL (0.2-1.0); TOTAL PROTEIN 8.6 GM/DL (6.4-8.2)
--- NOTE | 2017-12-30 12:21 | RADRPT ---
EXAM DATE/TIME: 12/30/2017 11:56 [facility] COMPARISON: CT BRAIN W/O CONTRAST, May 23, 2016, 14:23. INDICATIONS : Altered mental status. RADIATION DOSE: 56.35 CTDIvol (mGy) MEDICAL HISTORY : Chronic obstructive pulmonary disease. Renal failure, acute. Leukocytosis SURGICAL HISTORY : Hysterectomy. ENCOUNTER: Initial ACUITY: 1 day PAIN SCALE: 0/10 LOCATION: cranial TECHNIQUE: Multiple contiguous axial images were obtained of the head. Using automated exposure control and adj ustment of the mA and/or kV according to patient size, radiation dose was kept as low as reasonably a chievable to obtain optimal diagnostic quality images. DICOM format image data is available electro nically for review and comparison. FINDINGS: CEREBRUM: The ventricles are normal for age. No evidence of midline shift, mass lesion, hemorrhage or acute in farction. No extra-axial fluid collections are seen. POSTERIOR FOSSA: The cerebellum and brainstem are intact. The 4th ventricle is midline. The cerebellopontine angle i s unremarkable. EXTRACRANIAL: The visualized portion of the orbits is intact. SKULL: The calvaria is intact. No evidence of skull fracture. CONCLUSION: No acute disease. No significant change has occurred. No evidence of acute infarct, hemorrhage, mass or edema. Doyle Bravo MD on December 30, 2017 at 12:18 Board Certified Radiologist. This report was verified electronically.
[2017-12-30 13:25] LABS: AMORPHOUS SEDIMENT, URINE OCC; BACTERIA, URINE MOD /hpf; BILIRUBIN, URINE NEG (NEG); BLOOD, URINE MOD (NEG); GLUCOSE,URINE NEG (NEG); HYALINE CAST, URINE 1 /lpf (RARE); KETONE, URINE 10 mg/dL (NEG); MUCUS URINE FEW /lpf (OCC); NITRITE,URINE NEG (NEG); PH, URINE 5.5 (5.0-8.5); SQUAMOUS EPITHELIAL CELL URINE 2 /hpf (0-5); TRANSITIONAL EPI CELLS, URINE <1 /hpf; URINE COLOR YELLOW (YELLW/STRAW); URINE LEUKOCYTE ESTERASE MOD (NEG)
[2017-12-30] MEDS ORDERED: MACR100C2 PO (13:34)
[2017-12-30] MEDS ORDERED: cefTRIAXone INJ 1,000 MG in SODIUM CHLORIDE 0.9% INJ 100 ML IV ONE (13:45)
--- NOTE | 2017-12-31 11:34 | EKG ---
Date Performed: 12/30/2017 Time Performed: 11:46:54 PTAGE: 72 years EKG: Sinus rhythm LEFT ATRIAL ENLARGEMENT ABNORMAL ECG Since the prior tracing, there has been no significant change PREVIOUS TRACING DOCTOR: Brody Shen Interpretating Date/Time 12/31/2017 11:31:07
== END 2017-12-30 14:18 | disposition home or self-care (01) ==
LOC: NEPE 10:53
DX: E86.0 Dehydration (principal); N39.0 Urinary tract infection, site not specified; I10 Essential (primary) hypertension; E78.00 Pure hypercholesterolemia, unspecified; J44.9 Chronic obstructive pulmonary disease, unspecified; Z85.828 Personal history of other malignant neoplasm of skin; Z87.891 Personal history of nicotine dependence; Z79.82 Long term (current) use of aspirin; Z79.899 Other long term (current) drug therapy
CPT/HCPCS: 70450; 80053; 81001; 82550; 82552; 85025; 87086; 93005; 96361; 96374; 99285; J0696; J7030

== ENCOUNTER 2018-01-01 13:52 | Inpatient (IN) | payer MEDICARE ==
[2018-01-01] VITALS (7 sets, daily range): BP systolic 101–156; BP diastolic 63–96; PULSE 82–92; RESP 18–26; TEMP 97.5–98.7; O2SAT 95–98
[~2018-01-01] VITALS: Ht 152.4 cm; Wt 61.0 kg
[~2018-01-01 13:52] MED LIST changes: +MACR100C2 PO; -ROSU1TAB10 PO; -ZANT150T2 PO
--- NOTE | 2018-01-01 14:00 | PD ---
HPI Chief Complaint: General Weakness Time Seen by Provider: 14:00 Travel History International Travel<30 days: No Contact w/Intl Traveler<30days: No Traveled to known affect area: No History of Present Illness HPI 72-year-old female came to the emergency room brought by EMS for generalized weakness. Patient was seen in the emergency room 2 days back and was treated for UTI and discharged home from the emergency room. Patient says that she has just been feeling very very weak and tired. She did not eat or drink anything in past 24 hours. She feels very thirsty. Patient looks disheveled and poorly kept. Vital signs were relatively stable. Blood glucose was 124. She is awake and trying to answer questions appropriately. She appears to be in moderate distress. Patient denies of any pain anywhere. PFSH Past Medical History Narrative Medical List of her past medical, surgical, social and family history is reviewed from the nursing note. Arthritis: Yes (BACK AND NECK) Cancer: Yes (SKIN) Cardiovascular Problems: No High Cholesterol: Yes COPD: Yes Diabetes: No Diminished Hearing: No Endocrine: No Gastrointestinal Disorders: Yes (GERD) GERD: Yes Genitourinary: Yes (INCONTINENT) Hepatitis: No Hiatal Hernia: No Hypertension: Yes Immune Disorder: No Musculoskeletal: Yes (BACK, SPINE,NECK LEG PAIN; HERNIATED DISC) Neurologic: Yes (PERIPHERAL NEUROPATHY; MEMORY LOSS) Psychiatric: Yes (CLAUSTROPHIA; FEAR OF HEIGHTS) Reproductive: No Respiratory: Yes (PNEUMONIA; COPD) Immunizations Current: Yes Thyroid Disease: No Menopausal: Yes Past Surgical History Abdominal Surgery: Yes (LAP APPY) AICD: No Appendectomy: Yes Body Medical Devices: THORACIC TITANIUM Cardiac Surgery: No Ear Surgery: No Endocrine Surgery: No Eye Surgery: Yes (RIGHT CATARACT) Genitourinary Surgery: No Gynecologic Surgery: Yes (TOTAL ABD HYST; ) Hysterectomy: Yes (ISABELL) Joint Replacement: No Neurologic Surgery: Yes (THORACIC SPINE SURGERY X 3) Oral Surgery: No Pacemaker: No Thoracic Surgery: Yes (THORACIC APPROACH TO BACK SURGERY) Other Surgery: Yes (ISABELL, tHOR SPINE X2 '01,THOR SPINE & THOACOT 05) Social History Alcohol Use: Yes (WINE RARELY) Tobacco Use: No (QUIT SMOKING ) Substance Use: No Allergies-Medications (Allergen,Severity, Reaction): Coded Allergies: No Known Allergies (Verified Allergy, Unknown, 01/01/18) Comments No known drug allergies. Reported Meds & Prescriptions Reported Meds & Active Scripts Active Reported Crestor (Rosuvastatin Calcium) 40 Mg Tab 20 Mg PO HS Co Q-10 (Coenzyme Q10 (Ubidecarenone)) 100 Mg Cap 100 Mg PO DAILY Ventolin Hfa 18 GM Inh (Albuterol Sulfate) 90 Mcg/Act Aer 1 Puff INH Q4-6H PRN Duoneb (Ipratropium-Albuterol Neb) 0.5-2.5 Mg/3 Ml Neb 3 Ml NEB QID Fentanyl Patch 72 HR (Fentanyl) 25 Mcg/Hr Patch 25 Mcg T-DERMAL Q72H Baclofen 10 Mg Tab 10 Mg PO HS Gabapentin 600 Mg Tab 600 Mg PO TID Hydroxyzine HCl 25 Mg Tab 25 Mg PO PRN Clonazepam 1 Mg Tab 1 Mg PO HS Aspir-81 (Aspirin) 81 Mg Tabdr 81 Mg PO DAILY Multiple Vitamins (Multiple Vitamin) 1 Tab Tab 1 Tab PO DAILY Percocet (Oxycodone-Acetaminophen) 10-325 mg Tab 1 Tab PO Q6H PRN Ropinirole 1 Mg Tab 1.5 Mg PO TID Narrative Medication List of her home medications reviewed from the nursing note. Review of Systems Except as stated in HPI: all other systems reviewed are Neg HENT: Positive: Lightheadedness Physical Exam Narrative GENERAL: Awake, lethargic, moderate distress SKIN: Focused skin assessment warm/dry. Multiple generalized petechiae HEAD: Atraumatic. Normocephalic. EYES: Pupils equal and round. No scleral icterus. No injection or drainage. ENT: No nasal bleeding or discharge. Dry mucous membrane, coated tongue, peeling lips NECK: Trachea midline. No JVD. CARDIOVASCULAR: Regular rate and rhythm. No murmur appreciated. RESPIRATORY: No accessory muscle use. Clear to auscultation. Breath sounds equal bilaterally. GASTROINTESTINAL: Abdomen soft, non-tender, nondistended. Hepatic and splenic margins not palpable. MUSCULOSKELETAL: No obvious deformities. No clubbing. No cyanosis. No edema. NEUROLOGICAL: Lethargic but alert. No obvious cranial nerve deficits. Motor grossly within normal limits. Normal speech. PSYCHIATRIC: Appropriate mood and affect; insight and judgment normal. Data Data Last Documented VS Vital Signs Date Time Temp Pulse Resp B/P (MAP) Pulse Ox O2 Delivery O2 Flow Rate FiO2 01/01/18 15:29 97.5 01/01/18 14:30 83 26 96 01/01/18 14:00 Room Air Orders Orders Electrocardiogram (01/01/18 ) Ammonia (01/01/18 14:09) Complete Blood Count With Diff (01/01/18 14:09) Comprehensive Metabolic Panel (01/01/18 14:09) Creatine Kinase (Cpk) (01/01/18 14:09) Prothrombin Time / Inr (Pt) (01/01/18 14:09) Troponin I (01/01/18 14:09) Thyroid Stimulating Hormone (01/01/18 14:09) Urinalysis - C+S If Indicated (01/01/18 14:09) Lactic Acid Sepsis Protocol (01/01/18 14:09) Blood Culture (01/01/18 14:09) Chest, Single Ap (01/01/18 14:09) Ct Brain W/O Iv Contrast(Rout) (01/01/18 14:09) Blood Glucose (01/01/18 14:09) Ecg Monitoring (01/01/18 14:09) Iv Access Insert/Monitor (01/01/18 14:09) Oximetry (01/01/18 14:09) Sodium Chloride 0.9% Flush (Ns Flush) (01/01/18 14:15) Sodium Chlor 0.9% 1000 Ml Inj (Ns 1000 M (01/01/18 14:09) Drug Screen, Random Urine (01/01/18 14:09) Alcohol (Ethanol) (01/01/18 14:09) Tylenol (Acetaminophen) (01/01/18 14:09) Salicylates (Aspirin) (01/01/18 14:09) CKMB (01/01/18 14:18) CKMB% (01/01/18 14:18) Piperacil-Tazo 4.5 Gm Premix (Zosyn 4.5 (01/01/18 15:30) Vancomycin Inj (Vancomycin Inj) (01/01/18 15:30) Sodium Chlor 0.9% 1000 Ml Inj (Ns 1000 M (01/01/18 15:30) Ceftriaxone Inj (Rocephin Inj) (01/01/18 15:45) Azithromycin Inj (Zithromax Inj) (01/01/18 15:45) Admit Order (Ed Use Only) (01/01/18 15:56) Labs Laboratory Tests Test 01/01/18 14:18 01/01/18 14:20 01/01/18 14:21 White Blood Count 14.5 TH/MM3 Red Blood Count 4.52 MIL/MM3 Hemoglobin 13.1 GM/DL Hematocrit 39.6 % Mean Corpuscular Volume 87.7 FL Mean Corpuscular Hemoglobin 29.0 PG Mean Corpuscular Hemoglobin Concent 33.0 % Red Cell Distribution Width 15.4 % Platelet Count 225 TH/MM3 Mean Platelet Volume 8.9 FL Neutrophils (%) (Auto) 86.8 % Lymphocytes (%) (Auto) 6.9 % Monocytes (%) (Auto) 5.3 % Eosinophils (%) (Auto) 0.9 % Basophils (%) (Auto) 0.1 % Neutrophils # (Auto) 12.6 TH/MM3 Lymphocytes # (Auto) 1.0 TH/MM3 Monocytes # (Auto) 0.8 TH/MM3 Eosinophils # (Auto) 0.1 TH/MM3 Basophils # (Auto) 0.0 TH/MM3 CBC Comment DIFF FINAL Differential Comment Prothrombin Time 9.8 SEC Prothromb Time International Ratio 1.0 RATIO Blood Urea Nitrogen 26 MG/DL Creatinine 1.47 MG/DL Random Glucose 97 MG/DL Total Protein 7.5 GM/DL Albumin 2.4 GM/DL Calcium Level 10.0 MG/DL Alkaline Phosphatase 237 U/L Aspartate Amino Transf (AST/SGOT) 41 U/L Alanine Aminotransferase (ALT/SGPT) 46 U/L Total Bilirubin 0.5 MG/DL Sodium Level 138 MEQ/L Potassium Level 3.7 MEQ/L Chloride Level 101 MEQ/L Carbon Dioxide Level 24.5 MEQ/L Anion Gap 13 MEQ/L Estimat Glomerular Filtration Rate 35 ML/MIN Total Creatine Kinase 243 U/L Creatine Kinase MB 4.7 NG/ML Creatine Kinase MB % 1.9 % Troponin I LESS THAN 0.02 NG/ML Thyroid Stimulating Hormone 3rd Gen 0.689 uIU/ML Salicylates Level 3.7 MG/DL Acetaminophen Level LESS THAN 2.0 MCG/ML Ethyl Alcohol Level LESS THAN 3 MG/DL Ammonia 15 MCMOL/L Lactic Acid Level 1.0 mmol/L MDM Medical Decision Making Medical Screen Exam Complete: Yes Emergency Medical Condition: Yes Medical Record Reviewed: Yes Interpretation(s) Twelve-lead EKG was reviewed by me. Normal sinus rhythm, normal axis, PVCs, nonspecific ST-T wave changes. Heart rate of 85 bpm. Differential Diagnosis Dehydration, electrolyte abnormality, intracranial bleed, UTI, pneumonia Narrative Course 2:38 PM blood test results are back. Patient has some leukocytosis but when compared to last time it seems like white blood cell count is coming down. Chest x-ray is suggestive of right-sided increasing interstitial infiltrate. Chemistry shows elevated BUN/creatinine is slightly worse than before. Head CT is negative, patient was given 1 L of IV fluid bolus initially of ordered a second liter and IV Rocephin and Zithromax. Lactic acid is within normal limits. I would like to admit the patient today. Awaiting for the hospitalist call back. Procedures EKG Prior to Arrival: No Diagnosis Primary Impression: Pneumonia Qualified Codes: J18.9 - Pneumonia, unspecified organism Additional Impressions: Generalized weakness Dehydration Failure of outpatient treatment Admitting Information Admitting Physician Requests: Admit Scripts Budesonide-Formoterol Inh (Symbicort Inh) 160-4.5 Mcg/Act Aero 1 PUFF INH Q12HR, #1 INHALER 0 Refills Prov: Anay Iyer MD 01/04/18 Prednisone (21) 10 mg tab Dose Pack (Prednisone (21) 10 mg tab Dose Pack) 10 Mg Pack 10 MG PO DIRECTED for Inflammation, #1 DSPK 0 Refills Prov: Anay Iyer MD 01/04/18 Lactobacillus Acidophilus (Lactinex) 1 Chew 1 TAB CHEW DAILY for Nutritional Supplement, #30 TAB 0 Refills Prov: Anay Iyer MD 01/04/18 Cefuroxime (Ceftin) 250 Mg Tab 250 MG PO BID for infection for 10 Days, #20 TAB Prov: Anay Iyer MD 01/03/18 Luke Young MD Jan 01, 2018 14:00
[2018-01-01] MEDS ORDERED: SODIUM CHLOR 0.9% 1000 ML INJ 1,000 ML IV SCH (14:09)
[2018-01-01] MEDS ORDERED: SODIUM CHLORIDE 0.9% FLUSH 10 ML FLUSH IV FLUSH PRN ×3 (14:15→16:30)
--- NOTE | 2018-01-01 14:31 | RADRPT ---
EXAM DATE/TIME: 01/01/2018 14:22 [facility] COMPARISON: CHEST SINGLE AP, May 24, 2016, 9:34. INDICATIONS : Shortness of breath and weakness. MEDICAL HISTORY : Chronic obstructive pulmonary disease. Renal failure, acute. Leukocytosis SURGICAL HISTORY : Fusion, thoracic. Hysterectomy. ENCOUNTER: Initial ACUITY: 1 day PAIN SCORE: 0/10 LOCATION: Bilateral chest FINDINGS: Increasing interstitial edema with developing consolidation changes right lower lobe. Left lung clear. Previous spinal fusion and fixation. Cardiac silhouette is appropriate. CONCLUSION: Increasing interstitial edema is unchanged on the right suspicious for inflammatory process.. Alejandro Rea MD FACR on January 01, 2018 at 14:30 Board Certified Radiologist. This report was verified electronically.
[2018-01-01 14:41] LABS: AUTOMATED NEUTROPHIL # 12.6 TH/MM3 (1.8-7.7); BASOPHIL % 0.1 % (0.0-2.0); EOSINOPHIL # 0.1 TH/MM3 (0-0.4); EOSINOPHIL % 0.9 % (0.0-4.0); HEMATOCRIT 39.6 % (35.0-46.0); HEMOGLOBIN 13.1 GM/DL (11.6-15.3); LYMPH % 6.9 % (9.0-44.0); MEAN CELL VOLUME 87.7 FL (80.0-100.0); MEAN PLATELET VOLUME 8.9 FL (7.0-11.0); MONO % 5.3 % (0.0-8.0); MONOCYTE # 0.8 TH/MM3 (0-0.9); NEUT % 86.8 % (16.0-70.0); PLATELET COUNT 225 TH/MM3 (150-450); RED BLOOD COUNT 4.52 MIL/MM3 (4.00-5.30); RED CELL DISTRIBUTION WIDTH 15.4 % (11.6-17.2); WHITE BLOOD COUNT 14.5 TH/MM3 (4.0-11.0)
--- NOTE | 2018-01-01 14:46 | RADRPT ---
EXAM DATE/TIME: 01/01/2018 14:37 [facility] COMPARISON: CT BRAIN W/O CONTRAST, December 30, 2017, 11:56. INDICATIONS : Generalized weakness. Fall today. RADIATION DOSE: 32.95 CTDIvol (mGy) MEDICAL HISTORY : Renal failure, acute. SURGICAL HISTORY : Appendectomy. Hysterectomy. ENCOUNTER: Initial ACUITY: 1 day PAIN SCALE: 2/10 LOCATION: Bilateral cranial TECHNIQUE: Multiple contiguous axial images were obtained of the head. Using automated exposure control and adj ustment of the mA and/or kV according to patient size, radiation dose was kept as low as reasonably a chievable to obtain optimal diagnostic quality images. DICOM format image data is available electro nically for review and comparison. FINDINGS: CEREBRUM: The ventricles are normal for age. No evidence of midline shift, mass lesion, hemorrhage or acute in farction. No extra-axial fluid collections are seen. POSTERIOR FOSSA: The cerebellum and brainstem are intact. The 4th ventricle is midline. The cerebellopontine angle i s unremarkable. EXTRACRANIAL: The visualized portion of the orbits is intact. SKULL: The calvaria is intact. No evidence of skull fracture. CONCLUSION: Negative for acute traumatic injury Alejandro Rea MD FACR on January 01, 2018 at 14:43 Board Certified Radiologist. This report was verified electronically.
[2018-01-01 14:51] LABS: PROTHROMBIN TIME - PATIENT 9.8 SEC (9.8-11.6)
[2018-01-01 15:09] LABS: ALBUMIN 2.4 GM/DL (3.4-5.0); AST (GOT) 41 U/L (15-37); BICARBONATE 24.5 MEQ/L (21.0-32.0); BLOOD UREA NITROGEN 26 MG/DL (7-18); CHLORIDE 101 MEQ/L (98-107); CREATININE 1.47 MG/DL (0.50-1.00); GLOMERULAR FILTRATION RATE 35 ML/MIN (>89); GLUCOSE,RANDOM 97 MG/DL (74-106); SODIUM (NA) 138 MEQ/L (136-145)
[2018-01-01 15:18] LABS: ALKALINE PHOSPHATASE 237 U/L (45-117); ALT (GPT) 46 U/L (10-53); TOTAL BILIRUBIN ADULT 0.5 MG/DL (0.2-1.0); TOTAL PROTEIN 7.5 GM/DL (6.4-8.2); TROPONIN I LESS THAN 0.02 NG/ML (0.02-0.05)
[2018-01-01 15:19] LABS: ACETAMINOPHEN LESS THAN 2.0 MCG/ML (10.0-30.0)
[2018-01-01] MEDS ORDERED: SODIUM CHLOR 0.9% 1000 ML INJ 1,000 ML IV ONE (15:30)
[2018-01-01] MEDS ORDERED: PIPERACIL-TAZO 4.5 GM PREMIX 100 ML IV ONE (15:30)
[2018-01-01] MEDS ORDERED: VANCOMYCIN INJ 1,000 MG in SODIUM CHLOR 0.9% 250 ML INJ 250 ML IV ONE (15:30)
[2018-01-01] MEDS ORDERED: AZITHROMYCIN INJ 500 MG in SODIUM CHLOR 0.9% 250 ML INJ 250 ML IV ONE (15:45)
[2018-01-01] MEDS ORDERED: cefTRIAXone INJ 1,000 MG in SODIUM CHLORIDE 0.9% INJ 100 ML IV ONE (15:45)
[2018-01-01] MEDS ORDERED: COEN1CAP PO (15:56)
[2018-01-01] MEDS ORDERED: ROSU40 PO (15:56)
[2018-01-01] MEDS ORDERED: VENTAER INH (15:56)
[2018-01-01] MEDS ORDERED: ONDANSETRON HCL 4 MG/2 ML VIAL IVP PRN (16:30)
[2018-01-01] MEDS ORDERED: NALOXONE HCL 0.4 MG/ML AMP IV PUSH PRN (16:30)
[2018-01-01] MEDS ORDERED: RESP: ALBUTEROL 2.5 MG/3 ML NEB (PRN) INH (16:30)
[2018-01-01] MEDS ORDERED: oxyCODONE/ACETAMINOPHEN 5 MG/325 MG TAB PO PRN (16:30)
[2018-01-01] MEDS ORDERED: ACETAMINOPHEN 325 MG TAB PO PRN ×2 (16:30)
--- NOTE | 2018-01-01 16:52 | HHI.HP ---
[facility] Zoe Syed MD Admission Diagnosis pneumonia, outpatient treatment failure, dehydration Diagnoses: Chief Complaint: Nausea, poor p.o. intake. I am feeling weak. Travel History International Travel<30 Days: No Contact w/Intl Traveler <30 Da: No Traveled to Known Affected Are: No History of Present Illness 72-year-old white female with a previous history of chronic back and neck pain, hyperlipidemia, COPD, peripheral neuropathy who presents to emergency room with increased fatigue to the point that she fell a couple times this morning along with poor oral intake and nausea despite taking antibiotics Macrobid prescribed for UTI 2 days ago in the emergency room. She seems inconsistent with her medication history and cannot tell me exactly times when she last took her home medication particular fentanyl and Percocet. Initially she told me 2 days then 5 days ago. She denies running out of the medication and just tells me she has not been taking them due to her not feeling well. She reports she has been coughing more but denies any chills or fevers. She denies any abdominal pain or any diarrhea. Review of Systems Constitutional: COMPLAINS OF: Change in appetite (Poor appetite), DENIES: Fatigue, Fever, Chills, Dizziness, Night Sweats Endocrine: DENIES: Heat/cold intolerance Eyes: DENIES: Blurred vision, Eye pain, Vision loss Ears, nose, mouth, throat: DENIES: Hearing loss, Nasal discharge, Throat pain, Ear Pain, Sinus Pain Respiratory: COMPLAINS OF: Cough Cardiovascular: DENIES: Chest pain, Palpitations, Dyspnea on Exertion, Lower Extremity Edema Gastrointestinal: COMPLAINS OF: Nausea, DENIES: Abdominal pain, Black stools, Bloody stools, Constipation, Diarrhea, Vomiting Genitourinary: DENIES: Dysuria Musculoskeletal: DENIES: Joint pain, Muscle aches, Stiffness Integumentary: DENIES: Rash Hematologic/lymphatic: DENIES: Bruising, Lymphadenopathy Immunologic/allergic: DENIES: Eczema Neurologic: COMPLAINS OF: Poor Balance, DENIES: Headache, Localized weakness, Paresthesias Psychiatric: COMPLAINS OF: Anxiety, DENIES: Depression, Suicidal Ideation Past Family Social History Past Medical History Chronic neck and back pain Peripheral neuropathy Osteoarthritis Hyperlipidemia COPD GERD Past Surgical History Appendectomy Cataract surgery hysterectomy Spinal and back surgery Reported Medications Could not verified all meds from patient below. She states that she is not taking her fentanyl or Percocet. Duoneb (Ipratropium-Albuterol Neb) 0.5-2.5 Mg/3 Ml Neb 1 Nebule INH DAILY Fentanyl Patch 72 HR (Fentanyl) 25 Mcg/Hr Patch 25 Mcg T-DERMAL Q72H Baclofen 10 Mg Tab 10 Mg PO HS Gabapentin 600 Mg Tab 600 Mg PO TID Hydroxyzine HCl 25 Mg Tab 25 Mg PO PRN Clonazepam 1 Mg Tab 1 Mg PO HS Aspir-81 (Aspirin) 81 Mg Tabdr Multiple Vitamins (Multiple Vitamin) 1 Tab Tab Co Q 10 (Coenzyme Q10 (Ubidecarenone)) 10 Mg Cap Percocet (Oxycodone-Acetaminophen) 10-325 mg Tab 1 Tab PO Q6H PRN Diclofenac Sodium DR (Diclofenac Sodium) 50 Mg Tabdr Albuterol Neb (Albuterol Sulfate) 2.5 Mg/3 Ml Neb 2.5 Mg NEB BID Ropinirole 1 Mg Tab 1.5 Mg PO TID Allergies: Coded Allergies: No Known Allergies (Verified Allergy, Unknown, 01/01/18) Physical Exam Vital Signs Vital Signs Date Time Temp Pulse Resp B/P (MAP) Pulse Ox O2 Delivery O2 Flow Rate FiO2 01/01/18 15:29 97.5 01/01/18 14:30 83 26 137/96 (110) 96 01/01/18 14:00 Room Air 01/01/18 13:59 98.7 89 24 156/82 (106) Physical Exam GENERAL: This is a well-nourished, well-developed patient, slightly restless SKIN: Bilateral lower extremity abrasions and dried blood, cool and dry. HEAD: Atraumatic. Normocephalic. No temporal or scalp tenderness. EYES: Pupils equal round and reactive. Extraocular motions intact. No scleral icterus. No injection or drainage. ENT: Nose without bleeding, purulent drainage or septal hematoma. Throat without erythema, tonsillar hypertrophy or exudate. Uvula midline. Airway patent. NECK: Trachea midline. No JVD or lymphadenopathy. Supple, nontender, no meningeal signs. CARDIOVASCULAR: Regular rate and rhythm without murmurs, gallops, or rubs. RESPIRATORY: Right-sided crackles with few rhonchi GASTROINTESTINAL: Abdomen soft, non-tender, nondistended. Normoactive bowel sounds. MUSCULOSKELETAL: Extremities without clubbing, cyanosis, or edema. NEUROLOGICAL: Awake and alert to person place but inconsistent with time or situation.. Cranial nerves II through XII intact. Motor and sensory grossly within normal limits. Five out of 5 muscle strength in all muscle groups. Normal speech. Laboratory Laboratory Tests Test 01/01/18 14:18 01/01/18 14:20 01/01/18 14:21 White Blood Count 14.5 Red Blood Count 4.52 Hemoglobin 13.1 Hematocrit 39.6 Mean Corpuscular Volume 87.7 Mean Corpuscular Hemoglobin 29.0 Mean Corpuscular Hemoglobin Concent 33.0 Red Cell Distribution Width 15.4 Platelet Count 225 Mean Platelet Volume 8.9 Neutrophils (%) (Auto) 86.8 Lymphocytes (%) (Auto) 6.9 Monocytes (%) (Auto) 5.3 Eosinophils (%) (Auto) 0.9 Basophils (%) (Auto) 0.1 Neutrophils # (Auto) 12.6 Lymphocytes # (Auto) 1.0 Monocytes # (Auto) 0.8 Eosinophils # (Auto) 0.1 Basophils # (Auto) 0.0 CBC Comment DIFF FINAL Differential Comment Prothrombin Time 9.8 Prothromb Time International Ratio 1.0 Blood Urea Nitrogen 26 Creatinine 1.47 Random Glucose 97 Total Protein 7.5 Albumin 2.4 Calcium Level 10.0 Alkaline Phosphatase 237 Aspartate Amino Transf (AST/SGOT) 41 Alanine Aminotransferase (ALT/SGPT) 46 Total Bilirubin 0.5 Sodium Level 138 Potassium Level 3.7 Chloride Level 101 Carbon Dioxide Level 24.5 Anion Gap 13 Estimat Glomerular Filtration Rate 35 Total Creatine Kinase 243 Creatine Kinase MB 4.7 Creatine Kinase MB % 1.9 Troponin I LESS THAN 0.02 Thyroid Stimulating Hormone 3rd Gen 0.689 Salicylates Level 3.7 Acetaminophen Level LESS THAN 2.0 Ethyl Alcohol Level LESS THAN 3 Ammonia 15 Lactic Acid Level 1.0 Date/Time Source Procedure Growth Status 01/01/18 14:30 Blood Peripheral Aerobic Blood Culture Pending Received 01/01/18 14:30 Blood Peripheral Anaerobic Blood Culture Pending Received Result Diagram: 01/01/18 1418 01/01/18 1418 Imaging Last Impressions Head CT 01/01/18 140 Signed Impressions: Service Date/Time: Monday, January 01, 2018 14:37 - CONCLUSION: Negative for acute traumatic injury Alejandro Rea MD FACR Chest X-Ray 01/01/181408 Signed Impressions: Service Date/Time: Monday, January 01, 2018 14:22 - CONCLUSION: Increasing interstitial edema is unchanged on the right suspicious for inflammatory process.. Alejandro Rea MD FACR Course EKG sinus rhythm with heart rate 85 Caprini VTE Risk Assessment Caprini VTE Risk Assessment: Mod/High Risk (score >= 2) Caprini Risk Assessment Model Point Value = 1 Point Value = 2 Point Value = 3 Point Value = 5 Age 41-60 Minor surgery BMI > 25 kg/m2 Swollen legs Varicose veins or History of unexplained or recurrent spontaneous Oral contraceptives or hormone replacement Sepsis (< 1 month) Serious lung disease, including pneumonia (< 1 month) Abnormal pulmonary function Acute myocardial infarction Congestive heart failure (< 1 month) History of inflammatory bowel disease Medical patient at bed rest Age 61-74 Arthroscopic surgery Major open surgery (> 45 min) Laparoscopic surgery (> 45 min) Malignancy Confined to bed (> 72 hours) Immobilizing plaster cast Central venous access Age >= 75 History of VTE Family history of VTE Factor V Leiden Prothrombin [id number] Lupus anticoagulant Anticardiolipin antibodies Elevated serum homocysteine Heparin-induced thrombocytopenia Other congenital or acquired thrombophilia Stroke (< 1 month) Elective arthroplasty Hip, pelvis, or leg fracture Acute spinal cord injury (< 1 month) Prophylaxis Regimen Total Risk Factor Score Risk Level Prophylaxis Regimen 0-1 Low Early ambulation 2 Moderate Order ONE of the following: *Sequential Compression Device (SCD) *Heparin 5000 units SQ BID 3-4 Higher Order ONE of the following medications: *Heparin 5000 units SQ TID *Enoxaparin/Lovenox 40 mg SQ daily (WT < 150 kg, CrCl > 30 mL/min) *Enoxaparin/Lovenox 30 mg SQ daily (WT < 150 kg, CrCl > 10-29 mL/min) *Enoxaparin/Lovenox 30 mg SQ BID (WT < 150 kg, CrCl > 30 mL/min) AND/OR *Sequential Compression Device (SCD) 5 or more Highest Order ONE of the following medications: *Heparin 5000 units SQ TID (Preferred with Epidurals) *Enoxaparin/Lovenox 40 mg SQ daily (WT < 150 kg, CrCl > 30 mL/min) *Enoxaparin/Lovenox 30 mg SQ daily (WT < 150 kg, CrCl > 10-29 mL/min) *Enoxaparin/Lovenox 30 mg SQ BID (WT < 150 kg, CrCl > 30 mL/min) AND *Sequential Compression Device (SCD) Assessment and Plan Problem List: (1) Sepsis ICD Code: A41.9 - Sepsis, unspecified organism Status: Acute Assessment and Plan 72-year-old white female with #1 suspected sepsis on admission with presenting leukocytosis and tachypnea likely due to underlying community acquired pneumonia-await blood cultures. Continue with supportive care, IV Rocephin and Zithromax. Continue with DuoNeb treatments. Her altered mental status could be due to her systemic sepsis however will need to rule out other metabolic etiology and underlying narcotic withdrawal. Continue with neuro checks. Consult physical therapy for evaluate gait and balance. 2. Acute kidney injury likely due to dehydration- continue with IV fluid hydration 3. COPD with mild exacerbation likely due to coming acquired pneumonia - continue with bronchodilators and supportive care. 4. History of peripheral neuropathy-evaluate gait and balance with physical therapy continue with gabapentin. 5. History of chronic neck and back pain and being on chronic narcotics. Unknown last narcotic dose and will monitor closely. At this time, due to her altered mental status we will continue to hold fentanyl. Physician Certification 2 Midnight Certification Type: Admission for Inpatient Services Order for Inpatient Services The services are ordered in accordance with Medicare regulations or non- Medicare payer requirements, as applicable. In the case of services not specified as inpatient-only, they are appropriately provided as inpatient services in accordance with the 2-midnight benchmark. Estimated LOS (days): 3 days is the estimated time the patient will need to remain in the hospital, assuming treatment plan goals are met and no additional complications. Post-Hospital Plan: Not yet determined Lakesha Engle MD Jan 01, 2018 16:52
[2018-01-01 18:36] LABS: BACTERIA, URINE OCC /hpf; BILIRUBIN, URINE NEG (NEG); BLOOD, URINE MOD (NEG); GLUCOSE,URINE NEG (NEG); KETONE, URINE NEG (NEG); NITRITE,URINE NEG (NEG); PH, URINE 5.5 (5.0-8.5); SQUAMOUS EPITHELIAL CELL URINE 1 /hpf (0-5); TRANSITIONAL EPI CELLS, URINE <1 /hpf; URINE COLOR YELLOW (YELLW/STRAW); URINE LEUKOCYTE ESTERASE NEG (NEG)
[2018-01-01] MEDS: ENOXAPARIN SODIUM 40 MG/0.4 ML SYRINGE SQ SCH (18:54)
[2018-01-01] MEDS: RESP: ALBUTEROL 2.5 MG/IPRATROPIUM 0.5 MG NEB (SCH) INH ×2 (19:28→23:29)
[2018-01-01] MEDS ORDERED: SODIUM CHLORIDE 0.9% FLUSH 10 ML FLUSH IV FLUSH SCH (21:00)
[2018-01-01] MEDS: SODIUM CHLOR 0.9% 1000 ML INJ 1,000 ML IV SCH (22:56)
[2018-01-01] MEDS: SODIUM CHLORIDE 0.9% FLUSH 10 ML FLUSH IV FLUSH SCH (22:59)
[2018-01-01] MEDS: ATORVASTATIN 40 MG TAB PO SCH (23:00)
[2018-01-01] MEDS: NEOMYCIN/POLYMYXIN/BACITRACIN OINT 15 GM TUBE TOPICAL SCH (23:01)
[2018-01-02] VITALS (10 sets, daily range): BP systolic 128–171; BP diastolic 60–79; PULSE 91–101; RESP 20–24; TEMP 97.5–100; O2SAT 88–96
[2018-01-02] MEDS: SODIUM CHLOR 0.9% 1000 ML INJ 1,000 ML IV SCH ×2 (02:25→08:41)
[2018-01-02] MEDS: RESP: ALBUTEROL 2.5 MG/IPRATROPIUM 0.5 MG NEB (SCH) INH ×6 (03:16→23:48)
[2018-01-02] MEDS: SODIUM CHLORIDE 0.9% FLUSH 10 ML FLUSH IV FLUSH SCH ×2 (08:42→20:54)
[2018-01-02] MEDS: ASPIRIN EC 81 MG TABEC PO SCH (08:42)
[2018-01-02 08:47] LABS: AUTOMATED NEUTROPHIL # 8.5 TH/MM3 (1.8-7.7); BASOPHIL % 0.3 % (0.0-2.0); EOSINOPHIL # 0.1 TH/MM3 (0-0.4); EOSINOPHIL % 0.9 % (0.0-4.0); HEMATOCRIT 36.4 % (35.0-46.0); HEMOGLOBIN 12.1 GM/DL (11.6-15.3); LYMPHOCYTE # 0.9 TH/MM3 (1.0-4.8); MEAN CELL VOLUME 86.6 FL (80.0-100.0); MEAN CORPUSCULAR HEMOGLOBIN 28.8 PG (27.0-34.0); MEAN CORPUSCULAR HGB CONC 33.2 % (32.0-36.0); MEAN PLATELET VOLUME 8.9 FL (7.0-11.0); MONOCYTE # 0.7 TH/MM3 (0-0.9); NEUT % 82.8 % (16.0-70.0); PLATELET COUNT 206 TH/MM3 (150-450); RED CELL DISTRIBUTION WIDTH 15.5 % (11.6-17.2); WHITE BLOOD COUNT 10.3 TH/MM3 (4.0-11.0)
[2018-01-02] MEDS: oxyCODONE/ACETAMINOPHEN 10 MG/325 MG TAB PO PRN ×2 (08:57→17:34)
[2018-01-02 09:42] LABS: BICARBONATE 22.4 MEQ/L (21.0-32.0); CALCIUM 9.2 MG/DL (8.5-10.1); CREATININE 1.69 MG/DL (0.50-1.00)
--- NOTE | 2018-01-02 09:52 | EKG ---
Date Performed: 01/01/2018 Time Performed: 14:08:38 PTAGE: 72 years EKG: Sinus rhythm WITH OCCASIONAL SUPRAVENTRICULAR PREMATURE COMPLEXES BORDERLINE ECG PREVIOUS TRACING : 12/30/2017 11.46 DOCTOR: Duncan Morrison Interpretating Date/Time 01/02/2018 09:50:35
--- NOTE | 2018-01-02 11:11 | HHI.PR ---
Subjective Remarks At the margin of the bed appears with sob and with wheezing. NO n/v/d/c. Denies chest pain. Has nonproductive cough. No fever or chills. Objective Vitals Vital Signs Date Time Temp Pulse Resp B/P (MAP) Pulse Ox O2 Delivery O2 Flow Rate FiO2 01/02/18 08:21 88 01/02/18 08:21 95 Nasal Cannula 2.00 01/02/18 08:00 97.5 99 24 171/79 (109) 92 01/02/18 08:00 Room Air 01/02/18 04:00 100.0 101 24 128/66 (86) 92 01/02/18 00:00 98.3 91 20 139/60 (86) 96 01/01/18 20:00 Room Air 01/01/18 20:00 98.2 92 20 155/70 (98) 95 01/01/18 19:28 98 21 01/01/18 18:23 01/01/18 18:13 97.5 83 18 137/65 (89) 96 01/01/18 18:00 82 18 101/63 (76) 96 Room Air 01/01/18 15:29 97.5 01/01/18 14:30 83 26 137/96 (110) 96 01/01/18 14:00 Room Air 01/01/18 13:59 98.7 89 24 156/82 (106) I/O 01/01/18 01/01/18 01/01/18 01/02/18 01/02/18 01/02/18 07:00 15:00 23:00 07:00 15:00 23:00 Intake Total 360 ml Balance 360 ml Intake Oral 360 ml # Voids 3 Result Diagram: 01/02/18 0738 01/02/18 0738 Imaging Last Impressions Head CT 01/01/181408 Signed Impressions: Service Date/Time: Monday, January 01, 2018 14:37 - CONCLUSION: Negative for acute traumatic injury Alejandro Rea MD FACR Chest X-Ray 01/01/181408 Signed Impressions: Service Date/Time: Monday, January 01, 2018 14:22 - CONCLUSION: Increasing interstitial edema is unchanged on the right suspicious for inflammatory process.. Alejandro Rea MD FACR Objective Remarks GENERAL: This is a well-nourished, well-developed patient, slightly restless SKIN: Bilateral lower extremity abrasions and dried blood, cool and dry. CARDIOVASCULAR: Regular rate and rhythm without murmurs, gallops, or rubs. RESPIRATORY: Right-sided crackles with few rhonchi GASTROINTESTINAL: Abdomen soft, non-tender, nondistended. Normoactive bowel sounds. MUSCULOSKELETAL: Extremities without clubbing, cyanosis, or edema. NEUROLOGICAL: Awake and alert to person place but inconsistent with time or situation.. Cranial nerves II through XII intact. Motor and sensory grossly within normal limits. Five out of 5 muscle strength in all muscle groups. Normal speech. A/P Problem List: (1) Sepsis ICD Code: A41.9 - Sepsis, unspecified organism Status: Acute Assessment and Plan 72-year-old white female with #1 suspected sepsis on admission with presenting leukocytosis and tachypnea likely due to underlying community acquired pneumonia-await blood cultures. Continue with supportive care, IV Rocephin and Zithromax. Continue with DuoNeb treatments. Her altered mental status could be due to her systemic sepsis however will need to rule out other metabolic etiology and underlying narcotic withdrawal. Continue with neuro checks. Consult physical therapy for evaluate gait and balance. Add IS, acapella and EZ pap Add mucinex 2. Acute kidney injury likely due to dehydration- continue with IV fluid hydration. Monitor kidney function , improving 3. COPD with mild exacerbation likely due to coming acquired pneumonia - continue with bronchodilators and supportive care. 4. History of peripheral neuropathy-evaluate gait and balance with physical therapy continue with gabapentin. 5. History of chronic neck and back pain and being on chronic narcotics. Unknown last narcotic dose and will monitor closely. At this time, due to her altered mental status we will continue to hold fentanyl. Discussed with the patient ,nurse Anay Iyer MD Jan 02, 2018 11:11
[2018-01-02] MEDS: NEOMYCIN/POLYMYXIN/BACITRACIN OINT 15 GM TUBE TOPICAL SCH ×2 (14:28→20:54)
[2018-01-02] MEDS: AZITHROMYCIN INJ 500 MG in SODIUM CHLOR 0.9% 250 ML INJ 250 ML IV SCH (15:00)
[2018-01-02] MEDS ORDERED: ACETAMINOPHEN/CODEINE ELIX 120 MG/12 MG/5 ML CUP PO PRN (15:15)
[2018-01-02] MEDS ORDERED: POTASSIUM CHLORIDE 10 MEQ CONTROLLED RELEASE TAB PO ONE (15:15)
[2018-01-02] MEDS ORDERED: fentaNYL 25 MCG/HR PATCH T-DERMAL SCH (16:00)
--- NOTE | 2018-01-02 16:52 | PD.CONS ---
[facility] Service Nephrology Consult Requested By Dr. Iyer Reason for Consult Acute kidney injury Primary Care Physician Zoe Syed MD History of Present Illness This is a 72 year old lady admitted with vague complaints of falls, poor oral intake and fatigue. On admission, she had leukocytosis and tachycardia. Creatinine as 1.47, it has increased to 1.69. BP has been variable, but not low. In August of last year, her creatinine was 0.89. On 12/30/17, her creatinine was 1.02. UA revealed 100 mg/dl of protein. Of note, her home medication list included Diclofenac. Review of Systems Constitutional: COMPLAINS OF: Fatigue Cardiovascular: DENIES: Chest pain, Palpitations Gastrointestinal: COMPLAINS OF: Nausea, Anorexia, DENIES: Abdominal pain Musculoskeletal: DENIES: Joint pain Past Family Social History Allergies: Coded Allergies: No Known Allergies (Verified Allergy, Unknown, 01/01/18) Past Medical History Chronic neck and back pain Peripheral neuropathy Osteoarthritis Hyperlipidemia COPD GERD Past Surgical History Appendectomy Cataract surgery hysterectomy Spinal and back surgery Reported Medications She states that she is not taking her fentanyl or Percocet. Duoneb (Ipratropium-Albuterol Neb) 0.5-2.5 Mg/3 Ml Neb 1 Nebule INH DAILY Fentanyl Patch 72 HR (Fentanyl) 25 Mcg/Hr Patch 25 Mcg T-DERMAL Q72H Baclofen 10 Mg Tab 10 Mg PO HS Gabapentin 600 Mg Tab 600 Mg PO TID Hydroxyzine HCl 25 Mg Tab 25 Mg PO PRN Clonazepam 1 Mg Tab 1 Mg PO HS Aspir-81 (Aspirin) 81 Mg Tabdr Multiple Vitamins (Multiple Vitamin) 1 Tab Tab Co Q 10 (Coenzyme Q10 (Ubidecarenone)) 10 Mg Cap Percocet (Oxycodone-Acetaminophen) 10-325 mg Tab 1 Tab PO Q6H PRN Diclofenac Sodium DR (Diclofenac Sodium) 50 Mg Tabdr Albuterol Neb (Albuterol Sulfate) 2.5 Mg/3 Ml Neb 2.5 Mg NEB BID Ropinirole 1 Mg Tab 1.5 Mg PO TID Active Ordered Medications Current Medications Medications (Trade) Dose Ordered Sig/Kris Route Start Time Stop Time Status Last Admin Sodium Chloride 1,000 ml @ 100 mls/hr Q10H IV 01/01/18 16:25 01/02/18 08:41 (NS Flush) 2 ml UNSCH PRN IV FLUSH 01/01/18 16:30 (NS Flush) 2 ml BID IV FLUSH 01/01/18 21:00 01/01/18 22:59 (Tylenol) 650 mg Q4H PRN PO 01/01/18 16:30 (Zofran Inj) 4 mg Q6H PRN IVP 01/01/18 16:30 (Lovenox Inj) 40 mg Q24H SQ 01/01/18 17:00 01/01/18 18:54 (Tylenol) 650 mg Q6H PRN PO 01/01/18 16:30 (Percocet 5-325 Mg) 1 tab Q6H PRN PO 01/01/18 16:30 (Percocet 10-325 Mg) 1 tab Q6H PRN PO 01/01/18 16:30 01/02/18 08:57 (Narcan Inj) 0.4 mg UNSCH PRN IV PUSH 01/01/18 16:30 Ceftriaxone Sodium 1000 mg/ Sodium Chloride 100 ml @ 200 mls/hr Q24H IV 01/02/18 16:00 Azithromycin 500 mg/Sodium Chloride 250 ml @ 250 mls/hr Q24H IV 01/02/18 15:00 (Neosporin Oint) 1 applic Q12HR TOPICAL 01/01/18 21:00 01/02/18 14:28 (Duoneb Neb) 1 ampule Q4HR NEB INH 01/01/18 20:00 01/02/18 15:29 (Albuterol Neb) 2.5 mg Q2HR NEB PRN INH 01/01/18 16:30 (Ecotrin Ec) 81 mg DAILY PO 01/02/18 09:00 01/02/18 08:42 (Lipitor) 40 mg HS PO 01/01/18 21:00 01/01/18 23:00 (Duragesic 25 Mcg Patch.72 Hr) 25 patch Q72H T-DERMAL 01/02/18 16:00 (Neurontin) 600 mg TID PO 01/02/18 18:00 (Requip) 1.5 mg TID PO 01/02/18 18:00 (Mucinex Er) 600 mg BID PO 01/02/18 21:00 (Tylenol - Codeine 120-12 Liq) 5 ml Q6H PRN PO 01/02/18 15:15 Miscellaneous Information 1 Q3D T-DERMAL 01/05/18 16:00 (KlonoPIN) 0.5 mg HS PO 01/02/18 21:00 Family History reviewed, non contributory Social History quit smoking 1 month ago. Had accumulated about 58 year of smoking. No ETOH. Lives alone in [place]. Physical Exam Vital Signs Vital Signs Date Time Temp Pulse Resp B/P (MAP) Pulse Ox O2 Delivery O2 Flow Rate FiO2 01/02/18 15:33 91 Nasal Cannula 3.00 01/02/18 12:00 97.9 93 20 138/62 (87) 95 01/02/18 11:57 93 Nasal Cannula 3.00 01/02/18 08:21 88 01/02/18 08:21 95 Nasal Cannula 2.00 01/02/18 08:00 97.5 99 24 171/79 (109) 92 01/02/18 08:00 Room Air 01/02/18 04:00 100.0 101 24 128/66 (86) 92 01/02/18 00:00 98.3 91 20 139/60 (86) 96 01/01/18 20:00 Room Air 01/01/18 20:00 98.2 92 20 155/70 (98) 95 01/01/18 19:28 98 21 01/01/18 18:23 01/01/18 18:13 97.5 83 18 137/65 (89) 96 01/01/18 18:00 82 18 101/63 (76) 96 Room Air Physical Exam GENERAL: frail, elderly. SKIN: Warm and dry. HEAD: Normocephalic. EYES: No scleral icterus. No injection or drainage. NECK: Supple, trachea midline. No JVD or lymphadenopathy. CARDIOVASCULAR: Regular rate and rhythm without murmurs, gallops, or rubs. RESPIRATORY: bilateral wheezing and rhonchi. GASTROINTESTINAL: Abdomen soft, non-tender, nondistended. MUSCULOSKELETAL: No cyanosis, or edema. BACK: Nontender without obvious deformity. No CVA tenderness. Laboratory Laboratory Tests Test 01/01/18 17:20 01/02/18 07:38 Urine Color YELLOW Urine Turbidity HAZY Urine pH 5.5 Urine Specific [place] 1.007 Urine Protein 100 Urine Glucose (UA) NEG Urine Ketones NEG Urine Occult Blood MOD Urine Nitrite NEG Urine Bilirubin NEG Urine Urobilinogen LESS THAN 2.0 Urine Leukocyte Esterase NEG Urine RBC 3 Urine WBC 1 Urine Squamous Epithelial Cells 1 Urine Transitional Epithelial Cells <1 Urine Bacteria OCC Microscopic Urinalysis Comment CATH-CULTURE IND Urine Opiates Screen NEG Urine Barbiturates Screen NEG Urine Amphetamines Screen NEG Urine Benzodiazepines Screen NEG Urine Cocaine Screen NEG Urine Cannabinoids Screen NEG White Blood Count 10.3 Red Blood Count 4.20 Hemoglobin 12.1 Hematocrit 36.4 Mean Corpuscular Volume 86.6 Mean Corpuscular Hemoglobin 28.8 Mean Corpuscular Hemoglobin Concent 33.2 Red Cell Distribution Width 15.5 Platelet Count 206 Mean Platelet Volume 8.9 Neutrophils (%) (Auto) 82.8 Lymphocytes (%) (Auto) 9.0 Monocytes (%) (Auto) 7.0 Eosinophils (%) (Auto) 0.9 Basophils (%) (Auto) 0.3 Neutrophils # (Auto) 8.5 Lymphocytes # (Auto) 0.9 Monocytes # (Auto) 0.7 Eosinophils # (Auto) 0.1 Basophils # (Auto) 0.0 CBC Comment DIFF FINAL Differential Comment Blood Urea Nitrogen 25 Creatinine 1.69 Random Glucose 94 Calcium Level 9.2 Sodium Level 143 Potassium Level 3.1 Chloride Level 108 Carbon Dioxide Level 22.4 Anion Gap 13 Estimat Glomerular Filtration Rate 30 Date/Time Source Procedure Growth Status 01/01/18 14:30 Blood Peripheral Aerobic Blood Culture - Preliminary NO GROWTH IN 1 DAY Resulted 01/01/18 14:30 Blood Peripheral Anaerobic Blood Culture - Preliminary NO GROWTH IN 1 DAY Resulted 01/01/18 17:20 Urine Clean Catch Urine Culture Pending Received Result Diagram: 01/02/18 0738 01/02/18 0738 Assessment and Plan Problem List: (1) Acute kidney injury ICD Codes: N17.9 - Acute kidney failure, unspecified Plan: possible pre-renal azotemia, but could have progressed to ATN. Patient was also on NSAID: Diclofenac. Continue supportive care. Replace potassium. I have changed IVF to 1/2NS. UA reveals 100 mg/dl of proteinuria. Could be non specific. Quantify proteinuria. Avoid nephrotoxic agents. (2) Pneumonia ICD Codes: J18.9 - Pneumonia, unspecified organism Plan: CXR revealed right lower lobe consolidation. Received one dose of Vancomycin, now she is on Rocephin and Zithromax. (3) COPD (chronic obstructive pulmonary disease) ICD Codes: J44.9 - Chronic obstructive pulmonary disease Status: Acute Plan: Continue bronchodilators. Assessment and Plan Thanks for the consult. Melvin Ha MD Jan 02, 2018 16:52
--- NOTE | 2018-01-02 17:03 | RADRPT ---
EXAM DATE/TIME: 01/02/2018 16:15 [facility] COMPARISON: CT ABDOMEN & PELVIS W/O CONTRAST, May 23, 2016, 14:27. INDICATIONS : Increased BUN/Creatinine MEDICAL HISTORY : Hypercholesterolemia. Gastroesophageal reflux disease. Glasses. Numbness. Hyperlipidemia. COPD. Emp hysema. Dyspnea. Renal disease. Arthritis. Osteoporosis. Diabetes. Anxiety. Skin cancer. SURGICAL HISTORY : Tonsillectomy. Appendectomy. Hysterectomy. Bilateral cataract surgery. Chest surgery. Thoracic fusion . ENCOUNTER: Initial ACUITY: 1 day PAIN SCORE: 2/10 LOCATION: Bilateral flank MEASUREMENTS: RIGHT KIDNEY: 10.6 x 5.7 x 4.4 cm LEFT KIDNEY: 10.5 x 5.0 x 4.9 cm FINDINGS: RIGHT KIDNEY: There is an 8.5 mm round echogenic mass upper pole right kidney characteristic of an angiomyolipoma a nd present on previous examination, unchanged. LEFT KIDNEY: 1.2 cm cyst upper pole left kidney. Possible 2.5 mm cortical calcification left midpole kidney. No ob structing calculi are seen. BLADDER: Within normal limits given the degree of distension. CONCLUSION: No evidence of hydronephrosis. Right renal angiomyolipoma. Left renal cyst and cortical calcification suspected. Mustapha John MD on January 02, 2018 at 17:00 Board Certified Radiologist. This report was verified electronically.
[2018-01-02] MEDS: GABAPENTIN 300 MG CAP PO SCH (17:34)
[2018-01-02] MEDS: cefTRIAXone INJ 1,000 MG in SODIUM CHLORIDE 0.9% INJ 100 ML IV SCH (17:35)
[2018-01-02] MEDS: ENOXAPARIN SODIUM 40 MG/0.4 ML SYRINGE SQ SCH (17:46)
[2018-01-02] MEDS: SODIUM CHLOR 0.45% 1000 ML INJ 1,000 ML IV SCH (17:46)
[2018-01-02] MEDS: clonazePAM 0.5 MG TAB PO SCH (20:54)
[2018-01-02] MEDS: ATORVASTATIN 40 MG TAB PO SCH (20:54)
[2018-01-02] MEDS: guaiFENesin E.R. 600 MG TAB PO SCH (20:54)
[2018-01-02] MEDS ORDERED: clonazePAM 1 MG TAB PO SCH (21:00)
[2018-01-03] VITALS (8 sets, daily range): BP systolic 104–169; BP diastolic 58–89; PULSE 82–96; RESP 19–22; TEMP 97.4–98.5; O2SAT 90–98
[2018-01-03] MEDS: oxyCODONE/ACETAMINOPHEN 10 MG/325 MG TAB PO PRN ×4 (00:10→23:18)
[2018-01-03] MEDS: RESP: ALBUTEROL 2.5 MG/IPRATROPIUM 0.5 MG NEB (SCH) INH ×6 (03:41→23:45)
[2018-01-03] MEDS: SODIUM CHLOR 0.45% 1000 ML INJ 1,000 ML IV SCH (06:19)
[2018-01-03] MEDS: SODIUM CHLORIDE 0.9% FLUSH 10 ML FLUSH IV FLUSH SCH ×2 (09:00→21:37)
[2018-01-03 09:16] LABS: AUTOMATED NEUTROPHIL # 10.2 TH/MM3 (1.8-7.7); BASOPHIL # 0.1 TH/MM3 (0-0.2); BASOPHIL % 0.8 % (0.0-2.0); EOSINOPHIL # 0.2 TH/MM3 (0-0.4); EOSINOPHIL % 1.6 % (0.0-4.0); HEMATOCRIT 38.2 % (35.0-46.0); HEMOGLOBIN 12.7 GM/DL (11.6-15.3); LYMPH % 9.7 % (9.0-44.0); LYMPHOCYTE # 1.2 TH/MM3 (1.0-4.8); MEAN CELL VOLUME 86.9 FL (80.0-100.0); MEAN CORPUSCULAR HEMOGLOBIN 28.8 PG (27.0-34.0); MEAN CORPUSCULAR HGB CONC 33.1 % (32.0-36.0); MEAN PLATELET VOLUME 8.2 FL (7.0-11.0); MONO % 4.8 % (0.0-8.0); MONOCYTE # 0.6 TH/MM3 (0-0.9); NEUT % 83.1 % (16.0-70.0); PLATELET COUNT 262 TH/MM3 (150-450); WHITE BLOOD COUNT 12.3 TH/MM3 (4.0-11.0)
[2018-01-03] MEDS: ASPIRIN EC 81 MG TABEC PO SCH (09:45)
[2018-01-03] MEDS: guaiFENesin E.R. 600 MG TAB PO SCH ×2 (09:46→21:38)
[2018-01-03] MEDS: GABAPENTIN 300 MG CAP PO SCH ×3 (09:46→17:38)
[2018-01-03] MEDS: NEOMYCIN/POLYMYXIN/BACITRACIN OINT 15 GM TUBE TOPICAL SCH ×2 (09:46→21:37)
--- NOTE | 2018-01-03 09:47 | HHI.NPPN ---
Subjective Interval History Labs are pending. Urine output not recorded. Review of Systems General Constitutional: Fatigue Respiratory Lungs: SOB, Cough, Sputum, Wheeze Objective Data Data Vital Signs Date Time Temp Pulse Resp B/P (MAP) Pulse Ox O2 Delivery O2 Flow Rate FiO2 01/03/18 09:16 94 Nasal Cannula 3.00 01/03/18 08:00 98.2 96 22 169/89 (115) 90 01/03/18 04:00 Nasal Cannula 3.00 01/03/18 04:00 98.4 92 19 148/62 (90) 94 01/03/18 00:00 97.4 88 19 104/60 (75) 98 01/03/18 00:00 Nasal Cannula 3.00 01/02/18 23:57 94 Nasal Cannula 3.00 01/02/18 20:00 97.7 94 20 141/64 (89) 94 01/02/18 20:00 Nasal Cannula 3.00 01/02/18 16:00 Nasal Cannula 3.00 01/02/18 16:00 98.6 92 20 153/67 (95) 95 01/02/18 15:33 91 Nasal Cannula 3.00 01/02/18 12:00 97.9 93 20 138/62 (87) 95 01/02/18 12:00 Room Air 01/02/18 11:57 93 Nasal Cannula 3.00 -: 01/03/18 0848 01/02/18 0738 Physical Exam General Appearance: Malnourished Eyes Eye Exam: Pupils Equal Pulmonary Resp Exam: Crackles, Rhonchi, Sputum Cardiology CV Exam: Regular Gastrointestinal/Abdomen GI Exam: Soft, Non-Tender Musculoskeletal MS Exam: Joints Intact Neurologic Neuro Exam: Moving All Extremities Psychiatric Psych Exam: Appropriate Responses Assessment/Plan Problem List: (1) Acute kidney injury ICD Codes: N17.9 - Acute kidney failure, unspecified Plan: possible pre-renal azotemia, but could have progressed to ATN. Patient was also on NSAID: Diclofenac. Continue supportive care. Replace potassium as needed. I have changed IVF to 1/2NS. Taper off fluids. UA reveals 100 mg/dl of proteinuria. Could be non specific. Quantify proteinuria. Avoid nephrotoxic agents. (2) Pneumonia ICD Codes: J18.9 - Pneumonia, unspecified organism Plan: CXR revealed right lower lobe consolidation. Received one dose of Vancomycin, now she is on Rocephin and Zithromax. (3) COPD (chronic obstructive pulmonary disease) ICD Codes: J44.9 - Chronic obstructive pulmonary disease Status: Acute Plan: Continue bronchodilators. Melvin Ha MD Jan 03, 2018 09:47
[2018-01-03 10:08] LABS: BICARBONATE 25.2 MEQ/L (21.0-32.0); CALCIUM 9.5 MG/DL (8.5-10.1); CREATININE 1.62 MG/DL (0.50-1.00)
--- NOTE | 2018-01-03 10:42 | RADRPT ---
EXAM DATE/TIME: 01/03/2018 10:24 [facility] COMPARISON: No previous studies available for comparison. INDICATIONS : Right Shoulder pain MEDICAL HISTORY : Arthritis. Osteoporosis. Diabetes SURGICAL HISTORY : Tonsillectomy. Appendectomy. Hysterectomy. Bilateral cataract surgery. Chestsurgery. Thoracic fusion. ENCOUNTER: Initial ACUITY: 1 day PAIN SCORE: 4/10 LOCATION: Right Shoulder FINDINGS: There are degenerative changes at the AC joint the spurring evident. Alignment is anatomic. Fractur e is not appreciated. Patchy airspace disease in both lungs without pneumothorax CONCLUSION: Degenerative changes without fracture or malalignment. Alejandro Rea MD FACR on January 03, 2018 at 10:41 Board Certified Radiologist. This report was verified electronically.
[2018-01-03] MEDS ORDERED: CEFU1TAB18 PO (13:03)
--- NOTE | 2018-01-03 13:05 | HHI.DS ---
Discharge Summary Admission Date Jan 01, 2018 at 15:58 Discharge Date: Jan 04, 2018 Admitting Diagnosis pneumonia, outpatient treatment failure, dehydration (1) Sepsis ICD Code: A41.9 - Sepsis, unspecified organism Status: Acute (2) Pneumonia ICD Code: J18.9 - Pneumonia, unspecified organism (3) Acute kidney injury ICD Code: N17.9 - Acute kidney failure, unspecified (4) Restless legs syndrome (RLS) ICD Code: G25.81 - Restless legs syndrome (RLS) Status: Chronic (5) Chronic obstructive lung disease Status: Chronic (6) Chronic pain syndrome Status: Chronic (7) Failure of outpatient treatment ICD Code: Z78.9 - Other specified health status Status: Acute Procedures none Brief History - From Admission 72-year-old white female with a previous history of chronic back and neck pain, hyperlipidemia, COPD, peripheral neuropathy who presents to emergency room with increased fatigue to the point that she fell a couple times this morning along with poor oral intake and nausea despite taking antibiotics Macrobid prescribed for UTI 2 days ago in the emergency room. She seems inconsistent with her medication history and cannot tell me exactly times when she last took her home medication particular fentanyl and Percocet. Initially she told me 2 days then 5 days ago. She denies running out of the medication and just tells me she has not been taking them due to her not feeling well. She reports she has been coughing more but denies any chills or fevers. She denies any abdominal pain or any diarrhea. CBC/BMP: 01/03/18 0848 01/03/18 0848 Significant Findings Laboratory Tests Test 01/01/18 14:18 01/01/18 14:20 01/01/18 14:21 01/01/18 17:20 White Blood Count 14.5 TH/MM3 (4.0-11.0) Neutrophils (%) (Auto) 86.8 % (16.0-70.0) Lymphocytes (%) (Auto) 6.9 % (9.0-44.0) Neutrophils # (Auto) 12.6 TH/MM3 (1.8-7.7) Blood Urea Nitrogen 26 MG/DL (7-18) Creatinine 1.47 MG/DL (0.50-1.00) Albumin 2.4 GM/DL (3.4-5.0) Alkaline Phosphatase 237 U/L (45-117) Aspartate Amino Transf (AST/SGOT) 41 U/L (15-37) Estimat Glomerular Filtration Rate 35 ML/MIN (>89) Total Creatine Kinase 243 U/L (26-192) Creatine Kinase MB 4.7 NG/ML (0.5-3.6) Troponin I LESS THAN 0.02 NG/ML Acetaminophen Level LESS THAN 2.0 MCG/ML Urine Turbidity HAZY (CLEAR) Urine Protein 100 mg/dL (NEG-TRACE) Urine Occult Blood MOD (NEG) Urine Bacteria OCC /hpf (NONE) Test 01/02/18 07:38 01/03/18 08:48 Neutrophils (%) (Auto) 82.8 % (16.0-70.0) 83.1 % (16.0-70.0) Neutrophils # (Auto) 8.5 TH/MM3 (1.8-7.7) 10.2 TH/MM3 (1.8-7.7) Lymphocytes # (Auto) 0.9 TH/MM3 (1.0-4.8) Blood Urea Nitrogen 25 MG/DL (7-18) 20 MG/DL (7-18) Creatinine 1.69 MG/DL (0.50-1.00) 1.62 MG/DL (0.50-1.00) Potassium Level 3.1 MEQ/L (3.5-5.1) Chloride Level 108 MEQ/L (98-107) 108 MEQ/L (98-107) Estimat Glomerular Filtration Rate 30 ML/MIN (>89) 31 ML/MIN (>89) White Blood Count 12.3 TH/MM3 (4.0-11.0) Imaging Last Impressions Shoulder X-Ray 01/03/18 0000 Signed Impressions: Service Date/Time: Wednesday, January 03, 2018 10:24 - CONCLUSION: Degenerative changes without fracture or malalignment. Alejandro Rea MD FACR Renal Ultrasound 01/02/18 0000 Signed Impressions: Service Date/Time: Tuesday, January 02, 2018 16:15 - CONCLUSION: No evidence of hydronephrosis. Right renal angiomyolipoma. Left renal cyst and cortical calcification suspected. Mustapha John MD Head CT 01/01/181408 Signed Impressions: Service Date/Time: Monday, January 01, 2018 14:37 - CONCLUSION: Negative for acute traumatic injury Alejandro Rea MD FACR Chest X-Ray 01/01/181408 Signed Impressions: Service Date/Time: Monday, January 01, 2018 14:22 - CONCLUSION: Increasing interstitial edema is unchanged on the right suspicious for inflammatory process.. Alejandro Rea MD FACR PE at Discharge GENERAL: This is a well-nourished, well-developed patient, slightly restless SKIN: Bilateral lower extremity abrasions and dried blood, cool and dry. CARDIOVASCULAR: Regular rate and rhythm without murmurs, gallops, or rubs. RESPIRATORY: Right-sided crackles with few rhonchi GASTROINTESTINAL: Abdomen soft, non-tender, nondistended. Normoactive bowel sounds. MUSCULOSKELETAL: Extremities without clubbing, cyanosis, or edema. NEUROLOGICAL: Awake and alert to person place but inconsistent with time or situation.. Cranial nerves II through XII intact. Motor and sensory grossly within normal limits. Five out of 5 muscle strength in all muscle groups. Normal speech. Pt update on day of discharge She is in the chair, she appears to not acute distress at this time. She denies any shortness of breath or wheezing. Feels much better. She is not coughing much. No fever or chills. Says she follows with Dr. Sparks as outpatient per pulmonology . at bedside they will bring the portable oxygen from home. Patient says she is using 2-3 L at home she will follow-up as outpatient with PCP and pulmonology. Hospital Course 72-year-old white female with #1 suspected sepsis on admission with presenting leukocytosis and tachypnea likely due to underlying community acquired pneumonia-await blood cultures. Continue with supportive care, IV Rocephin and Zithromax. Continue with DuoNeb treatments. Her altered mental status could be due to her systemic sepsis however will need to rule out other metabolic etiology and underlying narcotic withdrawal. Continue with neuro checks. Consult physical therapy for evaluate gait and balance. Add IS, acapella and EZ pap Add mucinex Improving. Has O2 at home So far BC are negative 2. Acute kidney injury likely due to dehydration- continue with IV fluid hydration. Monitor kidney function , not much improving. Consulted nephrology appreciate recommendations. DC diclofenac. 3. COPD with mild exacerbation likely due to coming acquired pneumonia - continue with bronchodilators and supportive care. Give ceftin at NE add also budesonide formoterol at NE patient to follow up as OP with her pulm Dr Lazcano. 4. History of peripheral neuropathy-evaluate gait and balance with physical therapy continue with gabapentin. 5. History of chronic neck and back pain and being on chronic narcotics. Restart home pain meds as patient with severe pain . Fall 2 weeks ago with worsening right shoulder pain .x ray shoulder ordered and reviewed no fracture. Reveals DJD Discussed with the patient ,nurse, family at bedside Patient improved significantly. Has oxygen at home usually 2-3 L using. Follows with Dr. Prado as outpatient pulmonology, she will follow-up with him. Discharge home with home health in stable condition follow-up outpatient with PCP and consultants Pt Condition on Discharge: Stable Discharge Disposition: Disch w/ Home Health Serv Discharge Time: > 30 minutes Discharge Instructions DIET: Follow Instructions for: Heart Healthy Diet Activities you can perform: Regular-No Restrictions Follow up Referrals: Appointment for Follow Up - 2 Weeks @ Nephrology - 2 Weeks PCP Follow-up PCP Follow-up - [address] BRYANT Pulmonology - 2 Weeks Pulmonology New Medications: Budesonide-Formoterol Inh (Symbicort Inh) 160-4.5 Mcg/Act Aero 1 PUFF INH Q12HR, #1 INHALER 0 Refills Cefuroxime (Ceftin) 250 Mg Tab 250 MG PO BID for infection for 10 Days, #20 TAB Lactobacillus Acidophilus (Lactinex) 1 Chew 1 TAB CHEW DAILY for Nutritional Supplement, #30 TAB 0 Refills Prednisone (21) 10 mg tab Dose Pack (Prednisone (21) 10 mg tab Dose Pack) 10 Mg Pack 10 MG PO DIRECTED for Inflammation, #1 DSPK 0 Refills Continued Medications: Albuterol 18 GM Inh (Ventolin Hfa 18 GM Inh) 90 Mcg/Act Aer 1 PUFF INH Q4-6H PRN for SHORTNESS OF BREATH, #1 INHALER [address] (Aspir-81) 81 Mg Tabdr 81 MG PO DAILY Baclofen (Baclofen) 10 Mg Tab 10 MG PO HS, TAB 0 Refills Clonazepam (Clonazepam) 1 Mg Tab 1 MG PO HS, #60 TAB 0 Refills Coenzyme Q10 (Ubidecarenone) (Co Q-10) 100 Mg Cap 100 MG PO DAILY for Nutritional Supplement Fentanyl Patch 72 HR (Fentanyl Patch 72 HR) 25 Mcg/Hr Patch 25 MCG T-DERMAL Q72H for Pain Management, #10 PATCH 0 Refills Gabapentin (Gabapentin) 600 Mg Tab 600 MG PO TID, #90 TAB 0 Refills Hydroxyzine HCl (Hydroxyzine HCl) 25 Mg Tab 25 MG PO PRN for RASH, TAB 0 Refills Ipratropium-Albuterol Neb (Duoneb) 0.5-2.5 Mg/3 Ml Neb 3 ML NEB QID for Breathing Treatment, #30 NEBULE 0 Refills Multiple Vitamin (Multiple Vitamins) 1 Tab Tab 1 TAB PO DAILY for Nutritional Supplement Oxycodone-Acetaminophen (Percocet) 10-325 mg Tab 1 TAB PO Q6H PRN for PAIN, TAB 0 Refills Ropinirole (Ropinirole) 1 Mg Tab 1.5 MG PO TID, #30 TAB 0 Refills Rosuvastatin (Crestor) 40 Mg Tab 20 MG PO HS for Cholesterol Management, #30 TAB 0 Refills Discontinued Medications: Diclofenac Sodium DR (Diclofenac Sodium DR) 50 Mg Tabdr 50 MG PO BID, #180 Nitrofurantoin Monohydrate Macrocrystals (Macrobid) 100 Mg Capsule 100 MG PO BID for Infection for 7 Days, #14 CAP 0 Refills Anay Iyer MD Jan 03, 2018 13:05
[2018-01-03] MEDS: AZITHROMYCIN INJ 500 MG in SODIUM CHLOR 0.9% 250 ML INJ 250 ML IV SCH (13:29)
--- NOTE | 2018-01-03 15:34 | HHI.PR ---
Subjective Remarks In the chair. Says she has pain in her right shoulder especially after she fell 2 weeks ago, did not hve any images done. Restart home meds. X ray reviewed no fractures. Patient says she is still wit wheezing and sob but feels improved since yesterday No fever ro chilsl.No n/v/d/c. Says she is on 2-3 L NC at home Objective Vitals Vital Signs Date Time Temp Pulse Resp B/P (MAP) Pulse Ox O2 Delivery O2 Flow Rate FiO2 01/03/18 12:00 98.5 87 20 152/69 (96) 97 01/03/18 12:00 Nasal Cannula 3.00 01/03/18 09:16 94 Nasal Cannula 3.00 01/03/18 08:00 98.2 96 22 169/89 (115) 90 01/03/18 08:00 Nasal Cannula 3.00 01/03/18 04:00 Nasal Cannula 3.00 01/03/18 04:00 98.4 92 19 148/62 (90) 94 01/03/18 00:00 97.4 88 19 104/60 (75) 98 01/03/18 00:00 Nasal Cannula 3.00 01/02/18 23:57 94 Nasal Cannula 3.00 01/02/18 20:00 97.7 94 20 141/64 (89) 94 01/02/18 20:00 Nasal Cannula 3.00 01/02/18 16:00 Nasal Cannula 3.00 01/02/18 16:00 98.6 92 20 153/67 (95) 95 I/O 01/02/18 01/02/18 01/02/18 01/03/18 01/03/18 01/03/18 07:00 15:00 23:00 07:00 15:00 23:00 Intake Total 360 ml 720 ml 1116 ml Balance 360 ml 720 ml 1116 ml Intake Oral 360 ml 720 ml 240 ml IV Total 876 ml # Voids 3 4 4 # Bowel Movements 1 1 Result Diagram: 01/03/18 0848 01/03/18 0848 Imaging Last Impressions Shoulder X-Ray 01/03/18 0000 Signed Impressions: Service Date/Time: Wednesday, January 03, 2018 10:24 - CONCLUSION: Degenerative changes without fracture or malalignment. Alejandro Rea MD FACR Renal Ultrasound 01/02/18 0000 Signed Impressions: Service Date/Time: Tuesday, January 02, 2018 16:15 - CONCLUSION: No evidence of hydronephrosis. Right renal angiomyolipoma. Left renal cyst and cortical calcification suspected. Mustapha John MD Head CT 01/01/18 1409 Signed Impressions: Service Date/Time: Monday, January 01, 2018 14:37 - CONCLUSION: Negative for acute traumatic injury Alejandro Rea MD FACR Chest X-Ray 01/01/181408 Signed Impressions: Service Date/Time: Monday, January 01, 2018 14:22 - CONCLUSION: Increasing interstitial edema is unchanged on the right suspicious for inflammatory process.. Alejandro Rea MD FACR Objective Remarks GENERAL: This is a well-nourished, well-developed patient, chronically ill with some sob SKIN: Bilateral lower extremity abrasions and dried blood, cool and dry. CARDIOVASCULAR: Regular rate and rhythm without murmurs, gallops, or rubs. RESPIRATORY: Right-sided crackles with few rhonchi and scattered wheezing. GASTROINTESTINAL: Abdomen soft, non-tender, nondistended. Normoactive bowel sounds. MUSCULOSKELETAL: Extremities without clubbing, cyanosis, or edema. NEUROLOGICAL: Awake and alert and oriented x3. . Cranial nerves grossly intact. Motor and sensory grossly within normal limits. Normal speech. Procedures none A/P Problem List: (1) Sepsis ICD Code: A41.9 - Sepsis, unspecified organism Status: Acute (2) Pneumonia ICD Code: J18.9 - Pneumonia, unspecified organism (3) Acute kidney injury ICD Code: N17.9 - Acute kidney failure, unspecified (4) Restless legs syndrome (RLS) ICD Code: G25.81 - Restless legs syndrome (RLS) Status: Chronic (5) Chronic obstructive lung disease Status: Chronic Permanent Comment: mild 2009, moderate 10/13 Last Edited By: Renetta Davis on Nov 17, 2012 10:35 (6) Chronic pain syndrome Status: Chronic (7) Failure of outpatient treatment ICD Code: Z78.9 - Other specified health status Status: Acute Assessment and Plan 72-year-old white female with #1 suspected sepsis on admission with presenting leukocytosis and tachypnea likely due to underlying community acquired pneumonia-await blood cultures. Continue with supportive care, IV Rocephin and Zithromax. Continue with DuoNeb treatments. Her altered mental status could be due to her systemic sepsis however will need to rule out other metabolic etiology and underlying narcotic withdrawal. Continue with neuro checks. Consult physical therapy for evaluate gait and balance. Add IS, acapella and EZ pap Add mucinex 2. Acute kidney injury likely due to dehydration- continue with IV fluid hydration. Monitor kidney function , not much improving. Consulted nephrology appreciate recommendations. DC diclofenac. 3. COPD with mild exacerbation likely due to coming acquired pneumonia - continue with bronchodilators and supportive care. 4. History of peripheral neuropathy-evaluate gait and balance with physical therapy continue with gabapentin. 5. History of chronic neck and back pain and being on chronic narcotics. Restart home pain meds as patient with severe pain . Fall 2 weeks ago with worsening right shoulder pain .x ray shoulder ordered and reviewed no fracture. Reveals DJD Discussed with the patient ,nurse, family at bedside Anay Iyer MD Jan 03, 2018 15:34
[2018-01-03] MEDS: cefTRIAXone INJ 1,000 MG in SODIUM CHLORIDE 0.9% INJ 100 ML IV SCH (16:00)
[2018-01-03] MEDS: ENOXAPARIN SODIUM 40 MG/0.4 ML SYRINGE SQ SCH (17:38)
[2018-01-03] MEDS: ATORVASTATIN 40 MG TAB PO SCH (21:38)
[2018-01-03] MEDS: clonazePAM 0.5 MG TAB PO SCH (21:38)
[2018-01-04] VITALS: BP 165/79; PULSE 88; RESP 16; TEMP 97.7; O2SAT 97
[2018-01-04] MEDS: RESP: ALBUTEROL 2.5 MG/IPRATROPIUM 0.5 MG NEB (SCH) INH ×3 (03:48→11:15)
[2018-01-04 04:00] VITALS: BP 137/66; PULSE 84; RESP 16; TEMP 97.7; O2SAT 96
[2018-01-04] MEDS: oxyCODONE/ACETAMINOPHEN 10 MG/325 MG TAB PO PRN ×2 (05:28→11:48)
[2018-01-04 06:26] LABS: BICARBONATE 26.5 MEQ/L (21.0-32.0); CALCIUM 9.6 MG/DL (8.5-10.1); CREATININE 1.5 MG/DL (0.50-1.00)
[2018-01-04 07:12] LABS: AUTOMATED NEUTROPHIL # 9.3 TH/MM3 (1.8-7.7); BASOPHIL # 0.1 TH/MM3 (0-0.2); BASOPHIL % 0.5 % (0.0-2.0); EOSINOPHIL # 0.3 TH/MM3 (0-0.4); EOSINOPHIL % 2.5 % (0.0-4.0); HEMATOCRIT 36.1 % (35.0-46.0); HEMOGLOBIN 12.1 GM/DL (11.6-15.3); LYMPH % 12.5 % (9.0-44.0); LYMPHOCYTE # 1.5 TH/MM3 (1.0-4.8); MEAN CELL VOLUME 86.1 FL (80.0-100.0); MEAN CORPUSCULAR HEMOGLOBIN 28.8 PG (27.0-34.0); MEAN CORPUSCULAR HGB CONC 33.4 % (32.0-36.0); MEAN PLATELET VOLUME 8.5 FL (7.0-11.0); MONO % 6.1 % (0.0-8.0); MONOCYTE # 0.7 TH/MM3 (0-0.9); NEUT % 78.4 % (16.0-70.0); PLATELET COUNT 253 TH/MM3 (150-450); RED BLOOD COUNT 4.19 MIL/MM3 (4.00-5.30); RED CELL DISTRIBUTION WIDTH 16.2 % (11.6-17.2); WHITE BLOOD COUNT 11.8 TH/MM3 (4.0-11.0)
[2018-01-04 07:36] VITALS: O2SAT 95
--- NOTE | 2018-01-04 07:57 | HHI.NPPN ---
Subjective Interval History Renal function has improved. Non oliguric. Review of Systems General Constitutional: Fatigue Respiratory Lungs: SOB, Cough, Sputum, Wheeze Objective Data Data Vital Signs Date Time Temp Pulse Resp B/P (MAP) Pulse Ox O2 Delivery O2 Flow Rate FiO2 01/04/18 07:36 95 Nasal Cannula 3.00 01/04/18 04:00 97.7 84 16 137/66 (89) 96 01/04/18 04:00 Nasal Cannula 3.00 01/04/18 00:00 97.7 88 16 165/79 (107) 97 Manual Cuff/Auscultation 01/04/18 00:00 Nasal Cannula 3.00 01/03/18 20:00 98.4 89 20 122/58 (79) 93 01/03/18 20:00 Nasal Cannula 3.00 01/03/18 19:39 92 Nasal Cannula 3.00 01/03/18 16:00 98.5 82 20 130/61 (84) 97 01/03/18 16:00 Nasal Cannula 3.00 01/03/18 12:00 98.5 87 20 152/69 (96) 97 01/03/18 12:00 Nasal Cannula 3.00 01/03/18 09:16 94 Nasal Cannula 3.00 01/03/18 08:00 98.2 96 22 169/89 (115) 90 01/03/18 08:00 Nasal Cannula 3.00 -: 01/04/18 0300 01/04/18 0300 Physical Exam General Appearance: Malnourished Eyes Eye Exam: Pupils Equal Pulmonary Resp Exam: Crackles, Rhonchi, Sputum Cardiology CV Exam: Regular Gastrointestinal/Abdomen GI Exam: Soft, Non-Tender Musculoskeletal MS Exam: Joints Intact Neurologic Neuro Exam: Moving All Extremities Psychiatric Psych Exam: Appropriate Responses Assessment/Plan Problem List: (1) Acute kidney injury ICD Codes: N17.9 - Acute kidney failure, unspecified Plan: possible pre-renal azotemia, but could have progressed to ATN. Patient was also on NSAID: Diclofenac. Continue supportive care. Replace potassium as needed. IVF stopped. UA reveals 100 mg/dl of proteinuria. Could be non specific.Ordered quantification, results not available. Avoid nephrotoxic agents. (2) Pneumonia ICD Codes: J18.9 - Pneumonia, unspecified organism Plan: CXR revealed right lower lobe consolidation. Received one dose of Vancomycin, now she is on Rocephin and Zithromax. (3) COPD (chronic obstructive pulmonary disease) ICD Codes: J44.9 - Chronic obstructive pulmonary disease Status: Acute Plan: Continue bronchodilators. Plan I will sign off at this time. She can be discharged from renal standpoint. Melvin Ha MD Jan 04, 2018 07:57
[2018-01-04 08:00] VITALS: BP 148/67; PULSE 91; RESP 18; TEMP 98.7; O2SAT 92
[2018-01-04] MEDS: SODIUM CHLORIDE 0.9% FLUSH 10 ML FLUSH IV FLUSH SCH (09:00)
[2018-01-04] MEDS: NEOMYCIN/POLYMYXIN/BACITRACIN OINT 15 GM TUBE TOPICAL SCH (09:00)
[2018-01-04] MEDS ORDERED: LACTCHW3 CHEW (09:01)
[2018-01-04] MEDS ORDERED: PRED10PA PO (09:07)
[2018-01-04] MEDS ORDERED: SYMB160A INH (09:08)
[2018-01-04] MEDS: GABAPENTIN 300 MG CAP PO SCH (09:31)
[2018-01-04] MEDS: guaiFENesin E.R. 600 MG TAB PO SCH (09:32)
[2018-01-04] MEDS: ASPIRIN EC 81 MG TABEC PO SCH (09:32)
--- NOTE | 2018-01-04 11:47 | HHI.FF ---
Face to Face Verification Diagnosis: (1) Spondylolisthesis of lumbar region (2) COPD (chronic obstructive pulmonary disease) (3) Dyslipidemia (4) Essential hypertension (5) COPD with exacerbation Physical Therapy Order: Evaluate and Treat Home Health Nursing Order: Medical education Signs/symptoms of disease process Medication education-adverse effect Nursing assessment with vital signs I have seen patient Trinity Bridges on 01/04/18. My clinical findings support the need for the requested home health care services because: Ltd mobility - disease progression Patient has SOB I certify that my clinical findings support that this patient is homebound because: Post-op weakness Hx COPD- exertion dyspnea/weakness Anay Iyer MD Jan 04, 2018 11:47
[2018-01-04 12:00] VITALS: BP 141/70; PULSE 86; RESP 18; TEMP 98.9; O2SAT 97
[2018-01-05] MEDS ORDERED: fentaNYL 25 MCG/HR PATCH T-DERMAL SCH (16:00)
[2018-01-05] MEDS ORDERED: REMOVE OLD DURAGESIC (FENTANYL) PATCH T-DERMAL SCH (16:00)
== END 2018-01-04 12:15 | disposition home health service (06) | DRG 871 ==
LOC: NEPC 13:52 → NEDH 15:58 → N04A 18:20
PROVIDERS: ADMIT Hospitalist; ATTEND Hospitalist
DX: A41.9 Sepsis, unspecified organism (principal); J18.9 Pneumonia, unspecified organism; N17.0 Acute kidney failure with tubular necrosis; G62.9 Polyneuropathy, unspecified; N39.0 Urinary tract infection, site not specified; E46 Unspecified protein-calorie malnutrition; Z99.81 Dependence on supplemental oxygen; J44.0 Chronic obstructive pulmonary disease with (acute) lower respiratory infection; J44.1 Chronic obstructive pulmonary disease with (acute) exacerbation; E86.0 Dehydration; I10 Essential (primary) hypertension; E78.5 Hyperlipidemia, unspecified; M46.90 Unspecified inflammatory spondylopathy, site unspecified; K21.9 Gastro-esophageal reflux disease without esophagitis; M19.90 Unspecified osteoarthritis, unspecified site; R80.9 Proteinuria, unspecified; G25.81 Restless legs syndrome; G89.4 Chronic pain syndrome; M25.511 Pain in right shoulder; Z68.26 Body mass index [BMI] 26.0-26.9, adult; Z85.828 Personal history of other malignant neoplasm of skin; Z87.891 Personal history of nicotine dependence; Z91.81 History of falling; Z79.82 Long term (current) use of aspirin; Z79.899 Other long term (current) drug therapy
CPT/HCPCS: 70450; 71045; 73030; 76775; 76937; 80048; 80053; 80307; 81001; 82140; 82550; 82552; 83605; 83735; 84443; 84484; 85025; 85610; 87040; 87086; 93005; 94150; 94640; 94664; 94667; 94668; 96361; 96374; J0456; J0696; J1650; J7030; J7050

== ENCOUNTER → 2018-02-19 | Outpatient (CLI) | payer MEDICARE ==
[~2018-02-19] MED LIST changes: -ALBU0.08 NEB; +CEFU1TAB18 PO; -CO Q10CA; +COEN1CAP PO; -DICL50TA3 PO; +LACTCHW3 CHEW; -MACR100C2 PO; +PRED10PA PO; +SYMB160A INH; +VENTAER INH
[2018-02-19 13:58] LABS: AUTOMATED NEUTROPHIL # 6.7 TH/MM3 (1.8-7.7); BASOPHIL # 0.1 TH/MM3 (0-0.2); BASOPHIL % 0.7 % (0.0-2.0); EOSINOPHIL # 0.3 TH/MM3 (0-0.4); EOSINOPHIL % 2.4 % (0.0-4.0); HEMATOCRIT 40.5 % (35.0-46.0); HEMOGLOBIN 13.4 GM/DL (11.6-15.3); LYMPH % 28.2 % (9.0-44.0); MEAN CELL VOLUME 86.8 FL (80.0-100.0); MEAN CORPUSCULAR HEMOGLOBIN 28.7 PG (27.0-34.0); MEAN CORPUSCULAR HGB CONC 33.1 % (32.0-36.0); MEAN PLATELET VOLUME 9.6 FL (7.0-11.0); MONO % 4.9 % (0.0-8.0); MONOCYTE # 0.5 TH/MM3 (0-0.9); NEUT % 63.8 % (16.0-70.0); PLATELET COUNT 255 TH/MM3 (150-450); RED BLOOD COUNT 4.67 MIL/MM3 (4.00-5.30); RED CELL DISTRIBUTION WIDTH 16.2 % (11.6-17.2); WHITE BLOOD COUNT 10.6 TH/MM3 (4.0-11.0)
[2018-02-19 14:03] LABS: ALT (GPT) 20 U/L (10-53); AST (GOT) 18 U/L (15-37); CHOLESTEROL 104 MG/DL (120-200); TRIGLYCERIDES 143 MG/DL (42-150)
[2018-02-19 14:08] LABS: ALBUMIN 3.4 GM/DL (3.4-5.0); BLOOD UREA NITROGEN 12 MG/DL (7-18); CALCIUM 10.8 MG/DL (8.5-10.1); CHLORIDE 105 MEQ/L (98-107); CREATININE 0.73 MG/DL (0.50-1.00); GLOMERULAR FILTRATION RATE 78 ML/MIN (>89); GLUCOSE,FASTING 94 MG/DL (74-99); SODIUM (NA) 141 MEQ/L (136-145)
[2018-02-19 14:12] LABS: ALKALINE PHOSPHATASE 82 U/L (45-117); CHOLESTEROL/ HDL RATIO 2.24 RATIO; FREE T4 1.13 NG/DL (0.76-1.46); HDL CHOLESTEROL 46.4 MG/DL (40.0-60.0); LDL CHOLESTEROL 29 MG/DL (0-99); TOTAL BILIRUBIN ADULT 0.5 MG/DL (0.2-1.0); TOTAL PROTEIN 7.9 GM/DL (6.4-8.2)
[2018-02-19 14:14] LABS: HEMOGLOBIN A1C 6.1 % (4.3-6.0)
== END ==
LOC: PLAB 09:35
PROVIDERS: ATTEND Family Medicine
DX: E78.5 Hyperlipidemia, unspecified (principal); R73.01 Impaired fasting glucose; R94.6 Abnormal results of thyroid function studies
CPT/HCPCS: 36415; 80053; 80061; 83036; 84439; 84443; 85025

== ENCOUNTER → 2018-04-07 | Outpatient (CLI) | payer MEDICARE ==
[~2018-04-07] MED LIST changes: +ALBU.5I NEB; +DICL50TA3 PO
[2018-04-07 10:45] LABS: AUTOMATED NEUTROPHIL # 5.2 TH/MM3 (1.8-7.7); BASOPHIL # 0.1 TH/MM3 (0-0.2); BASOPHIL % 0.7 % (0.0-2.0); EOSINOPHIL # 0.3 TH/MM3 (0-0.4); EOSINOPHIL % 3.6 % (0.0-4.0); HEMATOCRIT 44.1 % (35.0-46.0); HEMOGLOBIN 14.6 GM/DL (11.6-15.3); LYMPH % 31.3 % (9.0-44.0); LYMPHOCYTE # 2.8 TH/MM3 (1.0-4.8); MEAN CELL VOLUME 88.1 FL (80.0-100.0); MEAN CORPUSCULAR HEMOGLOBIN 29.1 PG (27.0-34.0); MEAN PLATELET VOLUME 9.9 FL (7.0-11.0); MONO % 6.1 % (0.0-8.0); MONOCYTE # 0.5 TH/MM3 (0-0.9); NEUT % 58.3 % (16.0-70.0); PLATELET COUNT 216 TH/MM3 (150-450); RED BLOOD COUNT 5.01 MIL/MM3 (4.00-5.30); RED CELL DISTRIBUTION WIDTH 15.8 % (11.6-17.2); WHITE BLOOD COUNT 8.9 TH/MM3 (4.0-11.0)
[2018-04-07 10:48] LABS: PROTHROMBIN TIME - PATIENT 10.3 SEC (9.8-11.6)
[2018-04-07 10:52] LABS: BILIRUBIN, URINE NEG (NEG); BLOOD, URINE NEG (NEG); GLUCOSE,URINE NEG (NEG); KETONE, URINE NEG (NEG); MUCUS URINE MOD /lpf (OCC); NITRITE,URINE NEG (NEG); PH, URINE 5.5 (5.0-8.5); URINE COLOR YELLOW (YELLW/STRAW); URINE LEUKOCYTE ESTERASE NEG (NEG)
[2018-04-07 11:05] LABS: BICARBONATE 28.5 MEQ/L (21.0-32.0); CALCIUM 10.4 MG/DL (8.5-10.1); CREATININE 0.69 MG/DL (0.50-1.00)
== END ==
LOC: CPRE 08:07
PROVIDERS: ATTEND Orthopaedic Surgery
DX: Z01.810 Encounter for preprocedural cardiovascular examination (principal); Z01.811 Encounter for preprocedural respiratory examination; Z01.812 Encounter for preprocedural laboratory examination; Z01.818 Encounter for other preprocedural examination; M75.21 Bicipital tendinitis, right shoulder
CPT/HCPCS: 36415; 80048; 81001; 85025; 85610

== ENCOUNTER 2018-04-28 06:55 | Inpatient (IN) | payer MEDICARE ==
--- NOTE | 2018-04-22 12:24 | MH ---
cc: Rajinder Gautam MD DATE OF ADMISSION: 04/28/2018 ADMITTING DIAGNOSIS: Full-thickness rotator cuff tear of the right shoulder with associated acromioclavicular arthrosis. HISTORY OF PRESENT ILLNESS: The patient is a 73-year-old white female, who has had greater than a 1-year history of pain involving her right shoulder area. She had experienced difficulty with frequent falls during the past year as she relates to a history of neuropathy and weakness of her right lower extremity secondary to chronic low back pain for which she had undergone previous operative intervention, as well as pain management disposition. During several of these falls, she had sustained blunt trauma to her right shoulder area for which she had undergone medical evaluation with her primary care physician, Dr. Syed. She was initially encouraged to conform to conservative management and was later admitted to [facility] for medical management of dehydration. During this time, she underwent further evaluation for her complaints of pain about her right shoulder area with x-ray studies being without evidence of any acute bony abnormality. Upon discharge from the hospital, she was placed into a physical therapy program, experiencing lingering pain about the shoulder area for which she later underwent an MRI scan, the results of which identified a large retracted distal supraspinatus and infraspinatus tendon tear measuring approximately 3.5 cm in medial to lateral dimension with diffuse prominent edema of the infraspinatus muscle and mild fatty atrophy of the rotator cuff muscles in general. There was mild acromioclavicular joint arthrosis and a moderate sized glenohumeral joint effusion. The patient remained symptomatic with pain about the shoulder area with limited mobility for which she experienced difficulty conforming to her daily routine. Her pain medications included a fentanyl patch as well as oxycodone 10/325 and application of Biofreeze. When she presented to the undersigned physician in January of this year, she noted ongoing difficulty as related to her shoulder symptoms, she did receive a local Kenalog injection and was followed on an outpatient basis thereafter. Additional treatment options included consideration for operative intervention that would involve the possibility of attempting a rotator cuff repair versus proceeding with a reverse shoulder arthroplasty. It was emphasized to the patient, given the nature of her rotator cuff tear, there would be concerns with regard to the lesion being repairable as opposed to failure of repair, in spite of operative treatment that could necessitate additional management thereafter. The patient considered her options in this regard and returned to the office in followup disposition expressing her desire to proceed with operative treatment and noting her preference for reverse shoulder arthroplasty in the likelihood that it would afford her the more favorable long-term benefit regarding management of her symptoms. In compliance with her wishes, she was scheduled for admission at this time in order that the above be accomplished. She is right hand dominant. PAST MEDICAL HISTORY, HOSPITALIZATIONS AND SURGERIES: Have included total abdominal hysterectomy and oophorectomy. Three separate operative procedures of the thoracic spine, which included spinal fusion with instrumentation, lumbar laminectomy of the lower lumbar region, appendectomy, tonsillectomy, bilateral cataract excision, colonoscopy, esophageal dilation and medical management for dehydration, sepsis, pneumonia and urinary tract infection. The patient's medical illnesses include COPD, elevated cholesterol, gastroesophageal reflux disease syndrome, chronic pain syndrome and arthritis. CURRENT MEDICATIONS: 1. Clonazepam 0.5 mg at bedtime. 2. Ropinirole 1 mg twice daily and 1.5 mg at bedtime. 3. Baclofen 10 mg at bedtime. 4. Oxycodone 10/325 p.r.n. 5. CoQ10 100 mg daily. 6. 81 mg aspirin tablet daily. 7. Multivitamin tablet. 8. Gabapentin 600 mg 3 times daily. 9. Rosuvastatin 40 mg 1/2 tab at bedtime. 10. Hydroxyzine 25 mg p.r.n. 11. Fentanyl patch 50 mcg per hour every 3 days. 12. Ipratropium bromide. 13. Albuterol sulfate nebulizer twice daily. 14. Albuterol inhaler q. 6 hours p.r.n. ALLERGIES: THE PATIENT DENIES ANY KNOWN DRUG ALLERGIES. REVIEW OF SYSTEMS: She does wear glasses. Has had a history of occasional headaches. No seizure. Sinus congestion as related to environmental agents. No epistaxis. Diminished auditory acuity. No tinnitus. No bleeding gums. There is a history of dysphagia. Denies cough, shortness of breath. Positive history of pneumonia x2. No tuberculosis. No angina or heart disease. Her appetite is described as being fair. Bowel movements regular. No hepatitis, gallbladder disease, ulcers. There is a positive history of hemorrhoids. No urinary tract infection, no kidney stones. Fracture of the left wrist treated by cast immobilization. She has undergone psychiatric evaluation for memory impairment, but apparently no abnormality was identified. She has had positive skin testing in the past for tuberculosis. Her remaining review of systems is unremarkable and noncontributory. FAMILY HISTORY: The patient has been for more than 30 years, but she continued to cohabitate with her who subsequently within the past few years. She has 2 daughters, both of whom are described as being in good health. FAMILY HISTORY: Positive for hypertension, asthma, heart disease, Alzheimer's disease and lung cancer. SOCIAL HISTORY: The patient completed [employer] degree in science. 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 She denies active use of tobacco for the past 4 months, but has been a 1 pack per day user for at least 58 years in the past. Ethanol consumption in the form of an occasional glass of wine. PHYSICAL EXAMINATION: VITAL SIGNS: Height 5 feet, weight 113 pounds. GENERAL: This is an alert, oriented, and responsive 73-year-old white female who sits quietly upon the examination table with no obvious distress. HEAD, EARS, EYES, NOSE, AND THROAT: Pupils are equally round and reactive to light. Extraocular movements full. Sclerae are clear. External nares clear. External auditory canals clear. Dental intact. Mucous membranes pink and moist. Pharynx clear. NECK: Supple. Active range of motion with mild discomfort at the extremes of motion indicated to be chronic in nature. Carotid pulse is palpable bilaterally. Trachea midline. Thyroid without thyroid enlargement. LUNGS: Clear to auscultation and percussion. No CVA tenderness. No discomfort throughout the dorsolumbar spine. HEART: Regular rhythm. No murmur or gallop. ABDOMEN: Soft, nontender, bowel sounds present. PELVIC: Per primary care physician. EXTREMITIES: Right shoulder: Very minimal degree of tenderness is elicited about the anterior and superior aspect of the shoulder joint. The patient demonstrates some difficulty in her attempt to actively elevate her right hand above her head level with limitations of motion, especially with forward flexion in the 60-80 degree range of mobility. Internal rotation is limited to the posterior waist level. Cross arm positioning of right hand to left shoulder with some difficulty and discomfort towards the extremes of motion. No obvious crepitation or instability about the glenohumeral joint. Drop arm test positive. Rashid sign positive. Weakness of external rotation. Grain [employer] strength intact. Sensory intact. NEUROLOGIC: Cranial nerves 2-12 grossly intact. IMPRESSION: Complete rotator cuff tear of the right shoulder. PLAN: Right reverse shoulder arthroplasty. The nature of the planned surgical procedure, the potential complications and risks associated, the expectations of surgery and the consent form were thoroughly reviewed with the patient prior to admission to the hospital. Trinity has indicated her full understanding regarding all of the above and given consent to proceed with treatment as outlined. Medical evaluation and clearance for surgery completed by her primary care physician, Dr. Zoe Syed. MD MARY ALICE Holm/TL , 11:47 AM , 12:22 PM
[~2018-04-28] VITALS: Ht 152.4 cm; Wt 51.6 kg
[~2018-04-28 06:55] MED LIST changes: -CEFU1TAB18 PO; -LACTCHW3 CHEW; -PRED10PA PO
[2018-04-28] MEDS ORDERED: CHLORHEXIDINE GLUCONATE 2 % 1 PACK (2 CLOTHS) TOPICAL PRN (08:15)
[2018-04-28] MEDS ORDERED: LACTATED RINGER'S 1000 ML IV PRN (08:15)
[2018-04-28] MEDS ORDERED: SODIUM CHLORID 0.9% 500 ML IV PRN (08:15)
[2018-04-28] MEDS ORDERED: POVIDONE IODINE 5% (ANTISEPSIS KIT) 4 APPLICATIONS EACH NARE PRN (08:15)
[2018-04-28] MEDS ORDERED: TRANEXAMIC ACID 1 GM POST-OP IV SCH ×2 (08:15)
[2018-04-28] MEDS ORDERED: METOPROLOL TARTRATE 25 MG TAB PO PRN (08:15)
[2018-04-28] MEDS ORDERED: TRANEXAMIC ACID 1 GM PRIOR TO PROCEDURE IV SCH ×2 (08:15)
[2018-04-28] MEDS ORDERED: ceFAZolin 2 GM PREMIX 50 ML IV SCH (08:15)
[2018-04-28 09:03] VITALS: PULSE 77
[2018-04-28] MEDS ORDERED: LIDOCAINE HCL 1% PF 5 ML AMPULE ONE (09:29)
[2018-04-28] MEDS ORDERED: BUPIVACAINE HCL PF 0.5% 30 ML VIAL ONE (09:29)
[2018-04-28] MEDS ORDERED: MIDAZOLAM HCL 2 MG/2 ML VIAL ONE (09:30)
[2018-04-28] MEDS ORDERED: ceFAZolin INJ 1,000 MG VIAL ONE (09:47)
[2018-04-28] MEDS ORDERED: LIDOCAINE HCL 1% PF 5 ML SYRINGE OTHER ONE (12:00)
[2018-04-28] MEDS ORDERED: PHENYLEPHRINE HCL 10 MG/ML VIAL IV ONE (12:00)
[2018-04-28] MEDS ORDERED: ESMOLOL HCL 100 MG/10 ML VIAL IV ONE (12:00)
[2018-04-28] MEDS ORDERED: PHENYLEPH/NS 1000 MCG/10 ML SYR IV ONE (12:00)
[2018-04-28] MEDS ORDERED: KETOROLAC TROMETHAMINE 30 MG/ML (IVP) VIAL IV PUSH ONE (12:00)
[2018-04-28] MEDS ORDERED: PROPOFOL 200 MG/20 ML AMP IV ONE (12:00)
[2018-04-28] MEDS ORDERED: ONDANSETRON HCL 4 MG/2 ML VIAL IV ONE (12:00)
[2018-04-28] MEDS ORDERED: DEXAMETHASONE SOD PHOS 4 MG/ML VIAL IV ONE (12:00)
[2018-04-28] MEDS ORDERED: ePHEDrine/NS 25 MG/5 ML SYRINGE IV ONE (12:00)
[2018-04-28] MEDS ORDERED: SUCCINYLCHOLINE CHLORIDE 100 MG/5 ML SYRINGE IV PUSH ONE (12:00)
[2018-04-28] MEDS ORDERED: ROCURONIUM INJ 50 MG/5 ML SYRINGE IV PUSH ONE (12:00)
[2018-04-28] MEDS ORDERED: ACETAMINOPHEN 1000 MG/100 ML 100 ML IV ONE (12:13)
[2018-04-28] MEDS ORDERED: SUGAMMADEX SODIUM 200 MG/2 ML VIAL IV PUSH ONE (12:13)
[2018-04-28] MEDS ORDERED: DO NOT ADM ANY ANTICOAGULANT DRUGS PRN (13:05)
--- NOTE | 2018-04-28 13:14 | HHI.FF ---
Face to Face Verification Diagnosis: (1) Full thickness rotator cuff tear Occupational Therapy Right UE Weight Bearing: Non WB Right UE Range of Motion: Active ROM Additional Instructions No external rotation > 45 degrees for initial 4 weeks post-op then progress as tolerated Nursing Dressing Changes: Daily dressing change I have seen patient Trinity Bridges on 04/28/18. My clinical findings support the need for the requested home health care services because: Limited ability to care for self High risk of falls I certify that my clinical findings support that this patient is homebound because: Post-op weakness Unsteady gait/balance Unsafe to leave home unassisted Rajinder Gautam MD Apr 28, 2018 13:14
[2018-04-28] MEDS ORDERED: MORPHINE SULFATE 30 MG/30 ML PCA IV SCH (13:15)
[2018-04-28] MEDS ORDERED: Post-op Orders (for Pharmacy) XX ONE (13:15)
[2018-04-28] MEDS ORDERED: NALOXONE HCL 0.4 MG/ML AMP IV PUSH PRN (13:15)
[2018-04-28] MEDS ORDERED: ACETAMINOPHEN 325 MG TAB PO PRN (13:15)
[2018-04-28] MEDS ORDERED: TRANEXAMIC ACID INJ 1,000 MG in SODIUM CHLORIDE 0.9% INJ 100 ML IV SCH (13:15)
[2018-04-28] MEDS ORDERED: PHARMACY INFORMATION XX ONE (13:15)
[2018-04-28] MEDS ORDERED: BISACODYL 10 MG SUPP RECTAL PRN (13:15)
[2018-04-28] MEDS ORDERED: oxyCODONE/ACETAMINOPHEN 5 MG/325 MG TAB PO PRN (13:15)
[2018-04-28] MEDS ORDERED: ONDANSETRON ODT 4 MG TAB PO PRN (13:30)
--- NOTE | 2018-04-28 13:41 | MP ---
cc: Rajinder Gautam MD DATE OF OPERATION: PREOPERATIVE DIAGNOSIS: Full-thickness rotator cuff tear, right shoulder with acromioclavicular arthrosis. POSTOPERATIVE DIAGNOSIS: Full-thickness rotator cuff tear, right shoulder with acromioclavicular arthrosis including glenohumeral arthrosis. PROCEDURE PERFORMED: Right reverse shoulder arthroplasty. SURGEON: Rajinder Gautam MD ANESTHESIA: General endotracheal. INDICATIONS: A 73-year-old white female with a 1-year history of right shoulder pain. Had described a history of frequent falls during the previous year as related to neuropathy and weakness of her right lower extremity secondary to chronic low back pain for which the patient had undergone previous operative intervention, followed by pain management disposition. During these falls she sustained blunt trauma to the right shoulder area for which she had later undergone medical evaluation with her primary care physician, Dr. Zoe Syed. She was initially encouraged to conform to conservative management and was later admitted to [facility] for medical management of dehydration. During this time, she underwent further evaluation for complaints of pain about the shoulder area with x-ray studies being without evidence of any acute bony abnormality. Upon her discharge from the hospital, she initiated physical therapy, experiencing lingering pain about the shoulder area for which she later underwent an MRI scan, the results of which identified a large retracted distal supraspinatus and infraspinatus tendon tear measuring approximately 3.5 cm in medial to lateral dimension with diffuse prominent edema of the infraspinatus muscle and mild fatty atrophy of the rotator cuff muscles in general. There was acromioclavicular joint arthrosis and a moderate sized glenohumeral joint effusion. The patient remained symptomatic with pain about her shoulder area with limited mobility, for which she was having difficulty conforming to her daily routine. She was utilizing a fentanyl patch, as well as Oxycodone 10/325 for pain management. She was subsequently seen by the undersigned physician in January of this year and noted ongoing difficulties related to her shoulder symptoms. She was treated with a Kenalog injection and followed on an outpatient basis. Additional treatment included consideration for operative intervention that would involve attempting a rotator cuff repair versus reverse shoulder arthroplasty. The pluses and minuses of each procedure was outlined. Emphasis was made regarding the fact that the decision to proceed with surgery would be left entirely to the patient's discretion with additional notation that the possibility of encountering an irreparable rotator cuff lesion at the time of surgery versus failure of repair in spite of operative intervention that could necessitate further management thereafter. The patient considered her options in this regard and returned to the office in followup disposition, expressing her desire to proceed with reverse shoulder arthroplasty anticipating that it might afford her more favorable long-term benefit regarding long-term management of her shoulder symptoms. In compliance with her wishes, she was scheduled for admission at this time in order that the above be accomplished. FORMAT: Following the induction of satisfactory general anesthesia by endotracheal intubation as completed per the Department of Anesthesia, the patient was positioned on the operating table in a modified beach chair configuration. Right shoulder and upper extremity proper were isolated with a U-drape, thereafter being prepped with Betadine solution and draped into a sterile field in the routine manner. Prior to initiation of the actual procedure, the standard timeout protocol was completed. All parameters were appropriately addressed and confirmed by operating room personnel. A standard anterior approach to the shoulder was initiated by sharp skin incision being extended from the inferior margin of the clavicle and along the lateral palpable prominence of the coracoid process and distally overlying the deltopectoral interval to the axillary crease. The incision was developed through underlying subcutaneous tissue with hemostasis maintained by electrocautery. By deepening dissection, the deltopectoral interval was identified. The cephalic vein was exposed and the interval was developed in a distal to proximal orientation in a deepening fashion. The coracoid process was utilized as an anatomical landmark. With the shoulder maintained in a slightly externally rotated orientation, a limited release of the pectoralis insertion was completed. The 3 sister circumflex vessels were identified, clamped, and coagulated. The biceps tendon was exposed proximally and divided. Thereafter, the more distal portion of the tendon was tenodesed with #1 Ti-Cron suture to the stump of the pectoralis insertion. The excess portion of the tendon was excised. With the shoulder maintained in a slightly externally rotated orientation, the subscapularis tendon was divided along the anatomical neck of the humeral head with an attempt to maintain a cuff of tissue along the lesser tuberosity. Humeral head was delivered into the wound and an entry point was identified superiorly adjacent to the bicipital groove, facilitating a cortical opening into the humeral canal. Sequential rasping was accomplished from 7 through 10 mm. Broaching was thereafter accomplished from 7 through 9 mm with a 9 mm stem determined to be a stable fit. The covering plate was placed onto the trial humeral component and attention was thereafter redirected to the glenoid. Retractors were placed posteriorly anteriorly and superiorly facilitating exposure of the glenoid surface. The glenoid labrum was excised as was the superior and middle inferior glenohumeral ligament. A limited release of the additional portion of the subscapularis tendon facilitated exposure. The glenoid was thereafter identified in a 360 degree circumferential orientation. Hash martin were placed from the 12 to 6 o'clock position and the 3 to 9 o'clock position to orient the central portion of the glenoid. A guide pin was placed using the glenoid guide in approximately 10 degrees of inferior tilt and with the guide pin maintained the stepdown reamer was passed, creating a central peg hole. Thereafter, a 25 mm glenosphere mini baseplate was firmly seated. A depth measurement was accomplished and thereafter a 35 mm central screw was secured into place. Two 25 mm locking screws were placed at the 12 and 6 o'clock position and two 15 mm screws at the 3 and 9 o'clock position. With the baseplate firmly secured in place a 36 mm glenosphere with maximum inferior offset was attached to the baseplate. The 9 mm humeral broach remained in place and a trial reduction followed utilizing a 44 x 36 mm humeral bearing insert. The shoulder readily reduced and was carried through a passive range of motion with stability being demonstrated throughout the arc of mobility. An open dislocation was thereafter completed and the trial humeral components being removed, the wound was copiously irrigated with antibiotic saline solution. The canal was dried and thereafter, the size 9 mini humeral stem was firmly seated. Two additional Ti-Cron sutures were placed about the proximal humerus prior to seating of the humeral stem and 2 previously tagged sutures to the medial aspect of the subscapularis tendon were maintained in place. With the stem positioned, 36 mm glenosphere with maximum inferior offset was firmly seated as had previously been noted and to the humeral stem, the 44 x 36 mm humeral bearing component was firmly attached. Open reduction was completed and repeat range of motion again noted stability as previously described. The subscapularis tendon was thus repaired with #1 Ti-Cron sutures. Final irrigation was accomplished, hemostasis being maintained. The deltopectoral interval was repaired with 0 Vicryl suture and the remaining portion of the wound was closed in layers in the routine manner, skin margins being reapproximated with a running subcuticular 3-0 Vicryl suture over which Steri-Strips were applied. Xeroform gauze and a bulky dry sterile dressing were placed. The extremity was supported in an arm sling. Anesthesia was discontinued. The patient was transferred to the hospital bed and returned to the recovery room in satisfactory condition, having tolerated her operative procedure well. Estimated blood loss was approximately 100 mL. 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 Rajinder Gautam MD NBS/TL , 01:02 PM , 01:40 PM
[2018-04-28] MEDS: DEXT 5%-NACL 0.45% 1000 ML INJ 1,000 ML IV SCH ×3 (14:00→23:21)
[2018-04-28] MEDS: PCA - TOTAL MG MORPHINE DELIVERED PER SHIFT SCH ×2 (14:00→22:00)
--- NOTE | 2018-04-28 14:00 | RADRPT ---
EXAM DATE: 04/28/2018 1:56 PM EDT AGE/SEX: 73 years / Female INDICATIONS: Post-op right shoulder. CLINICAL DATA: This is the patient's initial encounter. Patient reports that signs and symptoms have been present for 1 day and indicates a pain score of 3/10. MEDICAL/SURGICAL HISTORY: None. None. COMPARISON: No prior exams available for comparison. FINDINGS: Status post total shoulder arthroplasty on the right. Anatomic alignment. Lung apex is clear. Previous spinal fusion. CONCLUSION: Anatomic alignment. Electronically signed by: Alejandro Rea MD 04/28/2018 1:58 PM EDT
[2018-04-28] MEDS ORDERED: *morphine SULFATE 4 MG/ML PERIprocedure ONLY ONE (14:01)
--- NOTE | 2018-04-28 14:34 | PD.CONS ---
HPI Service [facility] Consult Requested By Dr. desouza Reason for Consult Opinion recommendation on treatment of patient's COPD, hyperlipidemia, chronic pain syndrome and patient's complaint of left lower chest discomfort Primary Care Physician Zoe Syed MD Diagnoses: History of Present Illness 73-year-old white female with a history of chronic pain syndrome, osteoarthritis , peripheral neuropathy, COPD had some symptoms of left lower chest underneath her breast area gas discomfort and pain in which she rates as a 3 out of 10 in pain intensity with radiation towards the left side prior to surgery. She states the pain went away right before going to surgery however postoperatively has some recurrence of the similar discomfort. She still denies any radiation. She reports movement does not worsen the pain. She denies any associated nausea or vomiting nor any shortness of breath with the symptoms. She denies any heart palpitations. She reports she usually does not use oxygen at home only when she has acute bronchitis. She does use her nebulizer at home at least twice a day. She also reports she quit smoking December of this year. Review of Systems Constitutional: DENIES: Fatigue, Fever, Chills, Change in appetite Endocrine: DENIES: Heat/cold intolerance Eyes: DENIES: Blurred vision, Eye pain, Vision loss Ears, nose, mouth, throat: DENIES: Hearing loss, Nasal discharge, Throat pain, Ear Pain, Sinus Pain Respiratory: DENIES: Cough, Wheezing, Sputum production, Shortness of breath Cardiovascular: COMPLAINS OF: Chest pain, DENIES: Palpitations, Dyspnea on Exertion, Lower Extremity Edema Gastrointestinal: DENIES: Abdominal pain, Black stools, Bloody stools, Constipation, Diarrhea, Nausea, Vomiting Genitourinary: DENIES: Dysuria Musculoskeletal: DENIES: Joint pain, Muscle aches, Stiffness Integumentary: DENIES: Rash Hematologic/lymphatic: DENIES: Bruising, Lymphadenopathy Immunologic/allergic: DENIES: Eczema Neurologic: DENIES: Headache, Localized weakness, Paresthesias Psychiatric: DENIES: Anxiety, Depression, Suicidal Ideation Left lower chest wall discomfort as described in HPI Past Family Social History Allergies: Coded Allergies: No Known Allergies (Verified Allergy, Unknown, 04/28/18) Past Medical History Chronic pain syndrome Chronic neck and back pain Peripheral neuropathy Osteoarthritis GERD Hyperlipidemia COPD Past Surgical History Appendectomy Hysterectomy Hysterectomy Multiple spinal and lumbar surgery Tonsillectomy Cataract surgery Reported Medications Albuterol 1 puff every 4-6 hours as needed for shortness of breath Butyryl nebs twice daily Aspirin 81 mg p.o. daily Baclofen 10 mg p.o. nightly Symbicort 1 puff inhaler every 12 hours Klonopin 1 mg p.o. nightly Coenzyme Q10 100 mill grams p.o. daily Diclofenac 50 mill grams p.o. twice daily Fentanyl patch 25 MCG's every 72 hours Gabapentin 600 minutes p.o. 3 times daily Hydroxyzine 25 mg p.o. q. 6 as needed for anxiety DuoNeb treatment twice daily Multivitamins 1 p.o. daily Percocet 10 1 every 6 hours as needed for pain Ropinirole 1 mg PO at 8 am and 2 pm and 1.5 mg Po QHS Crestor 40 mg p.o. nightly Family History Mother had dementia and high blood pressure Father had asthma Social History Does not smoke cigarettes quit in December of this year Does not drink alcohol Physical Exam Vital Signs Vital Signs Date Time Temp Pulse Resp B/P (MAP) Pulse Ox O2 Delivery O2 Flow Rate FiO2 04/28/18 09:03 97 Nasal Cannula 2 04/28/18 09:03 77 04/28/18 08:24 99.1 73 20 140/72 (94) 97 Physical Exam GENERAL: This is a well-nourished, well-developed patient, in no apparent distress. SKIN: No rashes, ecchymoses or lesions. Cool and dry. HEAD: Atraumatic. Normocephalic. No temporal or scalp tenderness. EYES: Pupils equal round and reactive. Extraocular motions intact. No scleral icterus. No injection or drainage. ENT: Nose without bleeding, purulent drainage or septal hematoma. Throat without erythema, tonsillar hypertrophy or exudate. Uvula midline. Airway patent. NECK: Trachea midline. No JVD or lymphadenopathy. Supple, nontender, no meningeal signs. CARDIOVASCULAR: Regular rate and rhythm without murmurs, gallops, or rubs. Chest wall: Palpation of the left chest wall did not reproduce chest pain RESPIRATORY: Diminished breath sounds bilaterally GASTROINTESTINAL: Abdomen soft, non-tender, nondistended. No hepato-splenomegaly , or palpable masses. No guarding. MUSCULOSKELETAL: Right shoulder bandage clean dry intact. Bilateral SCDs NEUROLOGICAL: Awake and alert to person place time. Cranial nerves II through XII intact. Motor and sensory grossly within normal limits. Normal speech. Assessment and Plan Assessment and Plan 1. Status post right reverse shoulder arthroplastycontinue postoperative care, pain control, rehab per orthopedic surgery Dr. desouza 2. History of peripheral neuropathy continue with gabapentin 3. History of COPD continue with DuoNeb 4. History of chronic pain syndrome on chronic opiates-safe use of opiates discussed with patient today patient placed on LIBRARIAN SPECIALIST at this time with orthopedic surgery 5. DVT prophylaxis bilateral SCDs 6. Atypical left lower chest discomfort -cardiology consult was placed in the PACU by attending physician. Will obtain CPK troponin I and place patient on telemetry. EKG shows normal sinus rhythm with no acute changes. Lakesha Engle MD Apr 28, 2018 14:34
[2018-04-28] MEDS ORDERED: ALBUTEROL SULFATE 90 MCG/ACT HFA 8 GM INHALER INH PRN (15:00)
[2018-04-28] MEDS ORDERED: *RESP: ALBUTEROL 2.5 MG/3 ML NEB (PRN) PERIprocedural Use ONLY NEB ONE (15:45)
[2018-04-28 16:00] VITALS: BP 146/126; PULSE 86; RESP 16; TEMP 97.1; O2SAT 97
[2018-04-28] MEDS ORDERED: PILL SPLITTER OTHER PRN (16:00)
[2018-04-28] MEDS ORDERED: RESP: ALBUTEROL CONC 2.5 MG/0.5 ML NEB NEB PRN (16:30)
[2018-04-28] MEDS: GABAPENTIN 300 MG CAP PO SCH (17:15)
[2018-04-28 18:41] VITALS: PULSE 89
[2018-04-28 19:19] VITALS: BP 116/56; PULSE 89
[2018-04-28 20:00] VITALS: BP 139/60; PULSE 85; PULSE 90; RESP 19; TEMP 97.7; O2SAT 95
--- NOTE | 2018-04-28 20:11 | EKG ---
Date Performed: 04/28/2018 Time Performed: 09:22:37 PTAGE: 73 years EKG: Sinus rhythm POSSIBLE LEFT ATRIAL ENLARGEMENT LOW QRS VOLTAGE IN EXTREMITY LEADS BORDERLINE ECG PREVIOUS TRACING : 01/01/2018 14.08 Since the previous tracing, no significant change noted DOCTOR: Sonia Baron Interpretating Date/Time 04/28/2018 20:10:05
[2018-04-28] MEDS ORDERED: BACLOFEN 10 MG TAB PO SCH (21:00)
[2018-04-28] MEDS ORDERED: clonazePAM 1 MG TAB PO SCH (21:00)
[2018-04-28] MEDS ORDERED: NON-FORMULARY DRUG (Rosuvastatin (Crestor) 40 MG) PO SCH (21:00)
[2018-04-28] MEDS ORDERED: ATORVASTATIN 80 MG TAB PO SCH (21:00)
[2018-04-28] MEDS: BUDESONIDE-FORMOTEROL 160/4.5 MCG INHALER INH SCH ×2 (21:00→21:40)
[2018-04-28] MEDS ORDERED: RESP: ALBUTEROL CONC 2.5 MG/0.5 ML NEB NEB SCH (21:00)
[2018-04-28] MEDS ORDERED: ZOLPIDEM TARTRATE 5 MG TAB PO PRN (21:00)
[2018-04-28] MEDS: ASPIRIN 325 MG TAB PO SCH (21:39)
[2018-04-28] MEDS: RESP: ALBUTEROL 2.5 MG/IPRATROPIUM 0.5 MG NEB (SCH) NEB (22:15)
[2018-04-28 22:17] VITALS: O2SAT 99
[2018-04-29] VITALS (7 sets, daily range): BP systolic 114–132; BP diastolic 53–66; PULSE 66–90; RESP 16–18; TEMP 97.6–98.8; O2SAT 94–98
[2018-04-29] MEDS ORDERED: MAGNESIUM HYDROXIDE SUSP 30 ML CUP PO PRN (01:00)
[2018-04-29 02:54] LABS: HEMATOCRIT 36.4 % (35.0-46.0); MEAN CELL VOLUME 87.1 FL (80.0-100.0); MEAN CORPUSCULAR HEMOGLOBIN 28.7 PG (27.0-34.0); MEAN CORPUSCULAR HGB CONC 32.9 % (32.0-36.0); MEAN PLATELET VOLUME 9.5 FL (7.0-11.0); PLATELET COUNT 163 TH/MM3 (150-450); RED BLOOD COUNT 4.19 MIL/MM3 (4.00-5.30); RED CELL DISTRIBUTION WIDTH 14.8 % (11.6-17.2); WHITE BLOOD COUNT 12.6 TH/MM3 (4.0-11.0)
[2018-04-29 03:22] LABS: BLOOD UREA NITROGEN 12 MG/DL (7-18); CALCIUM 9.2 MG/DL (8.5-10.1); CHLORIDE 111 MEQ/L (98-107); CREATININE 0.64 MG/DL (0.50-1.00); GLOMERULAR FILTRATION RATE 91 ML/MIN (>89); GLUCOSE,RANDOM 141 MG/DL (74-106); MAGNESIUM 1.9 MG/DL (1.5-2.5); SODIUM (NA) 144 MEQ/L (136-145); TROPONIN I LESS THAN 0.02 NG/ML (0.02-0.05)
[2018-04-29] MEDS: DEXT 5%-NACL 0.45% 1000 ML INJ 1,000 ML IV SCH (05:45)
[2018-04-29] MEDS: PCA - TOTAL MG MORPHINE DELIVERED PER SHIFT SCH (06:00)
[2018-04-29] MEDS ORDERED: ASPI-183 PO (06:14)
--- NOTE | 2018-04-29 06:45 | MD ---
cc: Rajinder Gautam MD, Joanne MD DATE OF DISCHARGE: 04/29/2018 ADMITTING DIAGNOSIS: Full-thickness rotator cuff tear of the right shoulder with acromioclavicular arthrosis. DISCHARGE DIAGNOSIS: Full-thickness rotator cuff tear of the right shoulder with acromioclavicular arthrosis including glenohumeral joint arthrosis. HISTORY: A 73-year-old white female with a 1-year history of right shoulder pain, possibly related to frequent falls, which had occurred in the past as related to neuropathy and weakness of her right lower extremity with a history of chronic low back pain for which the patient had undergone previous operative intervention, as well as pain management treatment. During several of these fall, she had sustained blunt trauma to the shoulder area and had undergone previous evaluation with her primary care physician, Dr. Zoe Syed. She was initially encouraged to conform to conservative management and was later admitted to [facility] for medical management of dehydration. During this time, she underwent further evaluation for complaints of pain about the right shoulder area with x-ray studies being without evidence of any acute bony abnormality. Upon discharge from the hospital, she was placed into a physical therapy program experiencing lingering pain about the shoulder area. A subsequent MRI scan identified a large retracted distal supraspinatus and infraspinatus tendon tear measuring approximately 3.5 cm in medial to lateral dimension with diffuse prominent edema of the infraspinatus muscle and mild fatty atrophy of the rotator cuff muscles in general, acromioclavicular joint arthrosis and moderate sized glenohumeral joint effusion. The patient remained symptomatic with pain about her shoulder area, having difficulty conforming to her daily routine. She was utilizing routine pain medication, which included a fentanyl patch and oxycodone 10/325, as well as application of Biofreeze. When she presented to the undersigned physician in January of this year, she noted ongoing pain as related to her shoulder symptoms, having received a local Kenalog injection as part of her outpatient management. Additional treatment considerations were reviewed including operative intervention that would involve an attempt at repairing her rotator cuff versus reverse shoulder arthroplasty. Emphasis was made regarding the fact that the nature of the rotator cuff was of such a degree that it was possible that the rotator cuff might not be repairable as demonstrated at the time of surgery or the possibility of failure of repair in spite of operative intervention that could necessitate further management thereafter. The patient considered her options in this regard and subsequently returned to the office indicating her preference to proceed with reverse shoulder arthroplasty anticipating that it might afford her the more favorable long-term benefit. In compliance with her wishes, she was scheduled for admission at this time in order that the above be accomplished. Her physical examination at the time of admission revealed minimal tenderness about the anterior and superior aspect of the right shoulder. There was obvious difficulty as the patient attempted to actively elevate her right hand above the head level with limitations of motion, especially with forward flexion in the 60-80 degree range of mobility. Internal rotation limited to the posterior waist level, cross arm positioning right hand to the left shoulder with difficulty and discomfort. No obvious crepitation or instability about the glenohumeral joint. Drop arm test, positive. Rashid sign positive weakness of external rotation. Insurance Counselor strength intact. Sensory intact. HOSPITAL COURSE: Prior to admission to the hospital, the patient had undergone medical evaluation and clearance for surgery as completed by her primary care physician, Dr. Zoe Syed. She was taken to the operating room on 28 April 2018 and on that date underwent a right reverse shoulder arthroplasty completed in an uncomplicated manner. The patient was noted to have tolerated her operative procedure well, her postoperative course, stable thereafter. Hemoglobin and hematocrit assessment postoperatively was 12 and 36.4 respectively. The patient was progressively mobilized with the assistance of therapy intervention. Educational Therapist consulted to assist with discharge planning. The patient had expressed her desire to be discharged home and continue her rehabilitation on an outpatient basis. Plans were finalized in this regard and pending medical clearance, she was scheduled for discharge on the first postoperative day, at which time she was noted to be in stable condition. She was scheduled to be seen in office followup in approximately 4 weeks. PROGNOSIS: Favorable. DISCHARGE MEDICATIONS: Included: Aspirin 325 mg 1 tab twice daily x 3 weeks, #40. The patient was to continue with her pain management protocol as established preoperatively. Rajinder Gautam MD NBS/DL , 06:21 AM , 06:43 AM
[2018-04-29] MEDS: RESP: ALBUTEROL 2.5 MG/IPRATROPIUM 0.5 MG NEB (SCH) NEB (07:47)
[2018-04-29] MEDS: BUDESONIDE-FORMOTEROL 160/4.5 MCG INHALER INH SCH (09:00)
[2018-04-29] MEDS ORDERED: MULTIVITAMIN TAB PO SCH (09:00)
[2018-04-29] MEDS ORDERED: MULTIPLE VITAMIN PO SCH (09:00)
[2018-04-29] MEDS ORDERED: ASPIRIN EC 81 MG TABEC PO SCH (09:00)
[2018-04-29] MEDS: GABAPENTIN 300 MG CAP PO SCH ×3 (10:57→17:00)
[2018-04-29] MEDS: ASPIRIN 325 MG TAB PO SCH (10:58)
[2018-04-29] MEDS: oxyCODONE/ACETAMINOPHEN 5 MG/325 MG TAB PO PRN ×2 (12:45→17:00)
--- NOTE | 2018-04-29 12:50 | MB ---
cc: Simeon Davis MD DATE: 04/28/2018 HISTORY OF PRESENT ILLNESS: Trinity is a very pleasant 73-year-old lady who has a history of hypertension. She is postop from orthopedic surgery by Dr. Gautam. Consults obtained due to labile blood pressure in the OR and reports of some chest pain. The patient is currently in the PACU, accompanied by her nurse and her daughter. No acute distress. Currently, denies chest pain, fever, chills, cough, GI or bleeding, PND, orthopnea, syncope or dizziness. She does describe some chest pain on the left side of the chest intermittently. PAST MEDICAL HISTORY: As per history of present illness. Also includes chronic pain syndrome, chronic neck and back pain, peripheral neuropathy, osteoarthritis, GERD, hyperlipidemia, COPD. SOCIAL HISTORY: She quit smoking in 12/2017. Denies tobacco or alcohol use. PAST SURGICAL HISTORY: Appendectomy, hysterectomy, multiple spinal and lumbar surgeries, tonsillectomy, cataract surgery. MEDICATIONS PRIOR TO ADMISSION: Albuterol, aspirin 81 mg a day, baclofen, Symbicort, Klonopin, coenzyme, diclofenac 50 mg twice daily, fentanyl patch 25 mcg every 72 hours, gabapentin, hydroxyzine, DuoNeb, multivitamins, Percocet, ropinirole, Crestor 40 mg nightly. MEDICATIONS IN THE HOSPITAL: Aspirin __ 81 mg a day, Requip 1 mg daily, aspirin 325 mg b.i.d. p.o., albuterol ____ b.i.d., zolpidem 5 mg p.r.n., baclofen 10 mg at bedtime, Symbicort 1 puff q. 12 hours, Klonopin 1 mg at bedtime, albuterol 1 ampule b.i.d., gabapentin 600 t.i.d., cefazolin IV, albuterol p.r.n. PHYSICAL EXAMINATION: VITAL SIGNS: Blood pressure 124/56, pulse 98, temperature 97.4, sats 95% on 3 L nasal cannula. GENERAL: She is alert and oriented x3, in no acute distress. NECK: Supple. No JVD. No bruit. CARDIOVASCULAR: S1, S2. No murmurs, rubs or gallops. LUNGS: Coarse bilaterally. ABDOMEN: Soft, nontender, nondistended, with positive bowel sounds. EXTREMITIES: Lower extremity edema. LABORATORY DATA: On 04/07/2018, white count 8.9, hemoglobin 14.6, hematocrit 44.1, platelet count 216. INR 1.0. Sodium 141, potassium 3.5, chloride 104, bicarbonate 28.5, BUN 20, creatinine 0.69, calcium 10.4. On 02/19/2018, her hemoglobin A1c was 6.1. EKG 04/28/2018 at 9:27 a.m. shows normal sinus rhythm at 72 beats per minutes, late R-wave transition. No ST-T wave changes. DIAGNOSES: 1. Chest pain. 2. Hypertension. 3. Chronic obstructive pulmonary disease. 4. Diabetes mellitus. DISCUSSION: At this point in time, we will do serial troponin. Check a postop EKG. Continue telemetry monitoring. Monitor vital signs. Check labs in the morning. Continue aspirin and DVT prophylaxis per Dr. Gautam. Simeon Davis MD AWC/SB , 03:49 PM , 04:15 PM
--- NOTE | 2018-04-29 16:16 | PD.CARD.PN ---
Subjective Subjective Remarks chest pain below left rib, relieved with passing gas Objective Medications Current Medications Medications (Trade) Dose Ordered Sig/Kris Route Start Time Stop Time Status Last Admin (Lopressor) 25 mg MIXOLOGIST PRN PO 04/28/18 08:15 05/01/18 08:14 (Betadine 5% Antisepsis Kit) 1 applic MIXOLOGIST PRN EACH NARE 04/28/18 08:15 05/01/18 08:14 04/28/18 09:00 (Chlorhexidine 2% Cloth) 3 pack MIXOLOGIST PRN TOPICAL 04/28/18 08:15 05/01/18 08:14 04/28/18 08:30 Cefazolin Sodium/ Dextrose 50 ml @ 100 mls/hr MIXOLOGIST IV 04/28/18 08:15 05/01/18 08:14 04/28/18 10:33 Dextrose/Sodium Chloride 1,000 ml @ 125 mls/hr Q8H IV 04/28/18 13:04 04/29/18 05:45 (Percocet 5-325 Mg) 1 tab Q4H PRN PO 04/28/18 13:15 (Percocet 5-325 Mg) 2 tab Q4H PRN PO 04/28/18 13:15 04/29/18 12:45 (Tylenol) 650 mg Q6H PRN PO 04/28/18 13:15 (Zofran Odt) 4 mg Q6H PRN PO 04/28/18 13:30 (Ambien) 5 mg HS PRN PO 04/28/18 21:00 (Dulcolax Supp) 10 mg DAILY PRN RECTAL 04/28/18 13:15 (Narcan Inj) 0.4 mg UNSCH PRN IV PUSH 04/28/18 13:15 (Morphine 1 Mg/ ml PLASTICS HEAT WELDER) 30 mg UNSCH IV 04/28/18 13:15 04/30/18 13:14 04/28/18 15:23 PLASTICS HEAT WELDER Dosage Infused (Pha) 1 Q8HR .XX 04/28/18 14:00 04/29/18 06:00 (Aspirin) 325 mg BID PO 04/28/18 21:00 04/29/18 10:58 (Proair Hfa Inh) 1 puff Q4HR PRN INH 04/28/18 15:00 (Ecotrin Ec) 81 mg DAILY PO 04/29/18 09:00 04/29/18 10:58 (Lioresal) 10 mg HS PO 04/28/18 21:00 04/28/18 21:39 (Symbicort 160-4.5 Mcg Inh) 1 puff Q12HR INH 04/28/18 21:00 (KlonoPIN) 1 mg HS PO 04/28/18 21:00 04/28/18 21:39 (Neurontin) 600 mg TID PO 04/28/18 18:00 04/29/18 12:45 (Duoneb Neb) 1 ampule BID NEB NEB 04/28/18 21:00 04/29/18 07:47 (Requip) 1 mg DAILY PO 04/29/18 09:00 04/29/18 10:58 (Requip) 1.5 mg HS PO 04/28/18 21:00 04/28/18 21:39 (Pill Splitter) 1 ea UNSCH PRN OTHER 04/28/18 16:00 (Theragran) 1 tab DAILY PO 04/29/18 09:00 04/29/18 10:59 (Lipitor) 80 mg HS PO 04/28/18 21:00 04/28/18 21:37 (Albuterol Concentrated Neb) 2.5 mg BID NEB PRN NEB 04/28/18 16:30 (Milk Of Magnesia Liq) 30 ml BID PRN PO 04/29/18 01:00 04/29/18 05:45 Vital Signs / I&O Vital Signs Date Time Temp Pulse Resp B/P (MAP) Pulse Ox O2 Delivery O2 Flow Rate FiO2 04/29/18 12:00 98.1 79 16 114/53 (73) 96 04/29/18 08:00 98.8 90 17 132/63 (86) 97 04/29/18 06:00 17 04/29/18 04:10 82 04/29/18 04:00 98.7 84 18 124/66 (85) 98 04/29/18 00:40 66 04/29/18 00:01 98.3 72 18 131/58 (82) 94 04/28/18 22:17 99 21 04/28/18 22:00 17 04/28/18 20:00 97.7 85 19 139/60 (86) 95 6/27/18 20:00 90 04/28/18 19:19 89 116/56 (76) 04/28/18 18:41 89 I/O 04/28/18 04/28/18 04/28/18 04/29/18 04/29/18 04/29/18 07:00 15:00 23:00 07:00 15:00 23:00 Intake Total 1210 ml 100 ml 1100 ml Output Total 100 ml Balance 1110 ml 100 ml 1100 ml Intake IV Total 110 ml 100 ml 1100 ml Other 1100 ml Output Estimated Blood Loss 100 ml Physical Exam GENERAL: SKIN: Warm and dry. HEAD: Normocephalic. EYES: No scleral icterus. No injection or drainage. NECK: Supple, trachea midline. No JVD or lymphadenopathy. CARDIOVASCULAR: Regular rate and rhythm without murmurs, gallops, or rubs. RESPIRATORY: Breath sounds equal bilaterally. No accessory muscle use. GASTROINTESTINAL: Abdomen soft, non-tender, nondistended. MUSCULOSKELETAL: No cyanosis, or edema. BACK: Nontender without obvious deformity. No CVA tenderness. Laboratory Laboratory Tests Test 04/28/18 20:08 04/29/18 02:30 04/29/18 08:14 Troponin I LESS THAN 0.02 NG/ML LESS THAN 0.02 NG/ML LESS THAN 0.02 NG/ML White Blood Count 12.6 TH/MM3 Red Blood Count 4.19 MIL/MM3 Hemoglobin 12.0 GM/DL Hematocrit 36.4 % Mean Corpuscular Volume 87.1 FL Mean Corpuscular Hemoglobin 28.7 PG Mean Corpuscular Hemoglobin Concent 32.9 % Red Cell Distribution Width 14.8 % Platelet Count 163 TH/MM3 Mean Platelet Volume 9.5 FL Blood Urea Nitrogen 12 MG/DL Creatinine 0.64 MG/DL Random Glucose 141 MG/DL Calcium Level 9.2 MG/DL Magnesium Level 1.9 MG/DL Sodium Level 144 MEQ/L Potassium Level 3.5 MEQ/L Chloride Level 111 MEQ/L Carbon Dioxide Level 26.0 MEQ/L Anion Gap 7 MEQ/L Estimat Glomerular Filtration Rate 91 ML/MIN B-Type Natriuretic Peptide 93 PG/ML Assessment and Plan Problem List: (1) Chest pain ICD Codes: R07.9 - Chest pain, unspecified (2) COPD (chronic obstructive pulmonary disease) ICD Codes: J44.9 - Chronic obstructive pulmonary disease Status: Acute Assessment and Plan 1.) Chest pain - atypical, trop and ekg wnl, ok to dc from cv standpoint, I advised patient to call 911 if chest pain last > 15 minutes and f/u with pcp agustín, i explained i will be out of town until 05/17/18 and f/u with me then, d/w patient and nurse Simeon Davis MD Apr 29, 2018 16:16
== END 2018-04-29 17:21 | disposition home health service (06) | DRG 483 ==
LOC: HSDI 06:55 → N06B 16:09
PROVIDERS: ADMIT Orthopaedic Surgery; ATTEND Orthopaedic Surgery
PROC: 0RRJ00Z Replacement of Right Shoulder Joint with Reverse Ball and Socket Synthetic Substitute, Open Approach (ICD-10-PCS; principal; 2018-04-28 10:00)
DX: M19.011 Primary osteoarthritis, right shoulder (principal); E11.42 Type 2 diabetes mellitus with diabetic polyneuropathy; J44.9 Chronic obstructive pulmonary disease, unspecified; M54.5 Low back pain; M75.121 Complete rotator cuff tear or rupture of right shoulder, not specified as traumatic; R29.6 Repeated falls; K21.9 Gastro-esophageal reflux disease without esophagitis; G89.4 Chronic pain syndrome; E78.00 Pure hypercholesterolemia, unspecified; E78.5 Hyperlipidemia, unspecified; M54.2 Cervicalgia; R07.89 Other chest pain; I10 Essential (primary) hypertension; Z87.891 Personal history of nicotine dependence; Z91.81 History of falling; Z79.891 Long term (current) use of opiate analgesic; Z79.82 Long term (current) use of aspirin
CPT/HCPCS: 73020; 80048; 83735; 83880; 84484; 85027; 88305; 88311; 93005; 94150; 94640; 94664; C1776; J0131; J0330; J0690; J1100; J1885; J2250; J2270; J2370; J2405; J3010; J7120; J7613